=== PATIENT | female | born 1980 | race Caucasian/White ===

== ENCOUNTER 2016-03-30 22:43 | Inpatient (IN) | payer OTHER ==
[~2016-03-30] VITALS: Ht 177.8 cm; Wt 76.6 kg
[2016-03-30] MEDS: SENOKOT S TAB PO SCH (21:00)
[~2016-03-30 22:43] MED LIST: TYLE325T5 PO
[2016-03-30] MEDS ORDERED: MORPHINE 4 MG/ML 1ML SYRINGE As Ordered ONE (23:31)
[2016-03-30] MEDS ORDERED: ONDANSETRON 4MG/2ML VIAL (J2405) As Ordered ONE (23:31)
[2016-03-30 23:55] LABS: BASO # 0.1 K/mm3 (0.0-0.2); BASO % 1.9 % (0.0-1.0); EOS % 0.6 % (0.0-3.0); LARGE UNSTAINED CELL # 0.1 K/mm3 (0.0-0.4); LARGE UNSTAINED CELL % 1.2 % (0.0-4.0); LYMPH # 2.1 K/mm3 (1.5-4.5); LYMPH % 34.3 % (24.0-44.0); MEAN CORPUSCULAR HGB CONC 30.6 g/dl (32.0-36.5); MEAN CORPUSCULAR VOLUME 68.6 fl (80.0-96.0); MONO # 0.3 K/mm3 (0.0-0.8); MONO % 5.2 % (0.0-5.0); NEUTROPHILS # 3.3 K/mm3 (1.8-7.7); NEUTROPHILS % 56.7 % (36.0-66.0); PLATELET COUNT, AUTOMATED 254 k/mm3 (150-450); RED CELL DISTRIBUTION WIDTH 18.5 % (11.5-14.5); WHITE BLOOD COUNT 5.8 K/mm3 (4.0-10.0)
[2016-03-30 23:58] LABS: CALCIUM OXALATE CRYSTALS LARGE
[2016-03-31] LABS: ADD MORPHOLOGY? YES
[2016-03-31 00:18] LABS: ALBUMIN 4.1 GM/DL (3.2-5.2); ALBUMIN/GLOBULIN RATIO 1.03 (1.00-1.93); ALKALINE PHOSPHATASE 72 U/L (45-117); ALT/SGPT 15 U/L (12-78); AMYLASE 49 U/L (25-115); ANION GAP 7 MEQ/L (8-16); AST/SGOT 11 U/L (15-37); BILIRUBIN,DIRECT < 0.1 MG/DL (0.0-0.2); BILIRUBIN,TOTAL 0.3 MG/DL (0.2-1.0); BLOOD UREA NITROGEN 11 MG/DL (7-18); CALCIUM LEVEL 8.4 MG/DL (8.5-10.1); CARBON DIOXIDE LEVEL 28 MEQ/L (21-32); CHLORIDE LEVEL 106 MEQ/L (98-107); CREATININE FOR GFR 0.62 MG/DL (0.55-1.02); GLOMERULAR FILTRATION RATE > 60.0 (>60); GLUCOSE, FASTING 76 MG/DL (70-105); POTASSIUM SERUM 3.3 MEQ/L (3.5-5.1); SODIUM LEVEL 141 MEQ/L (136-145); TOTAL PROTEIN 8.1 GM/DL (6.4-8.2)
--- NOTE | 2016-03-31 00:40 | REPUSA ---
CLINICAL HISTORY: Abdominal pain. TECHNIQUE: Multiple axial, sagittal and coronal CT images were obtained through the abdomen and pelvi s without administration of oral or IV contrast material. COMMENTS: The liver is of uniform attenuation without mass or defect. There is no intra or extrahepatic biliary ductal dilatation. The spleen is normal. The gallbladder is surgically absent. The pancreas is of no rmal contour and attenuation characteristics. There is no evidence of adrenal mass. The kidneys are normal in size, shape and configuration. No renal or ureteral calculi are identified. There is no hydroureter or hydronephrosis. Gastric bypass surgery. There is no evidence for appendicitis. Fluid filled dilated proximal small bowels. Transition to norm al caliber small bowel in the right lower quadrant at the level of the surgical anastomosis. There is no evidence of abdominal ascites or lymphadenopathy. There is no evidence of intrinsic or extrinsic bladder mass. There is no pelvic ascites or lymphadeno noel. Images of the lung bases show no evidence of pleural or parenchymal mass. There are no pleural effusi ons. The bony structures are free of lytic or blastic lesions. IMPRESSION: Ileus versus developing/low grade partial bowel obstruction. Cholecystectomy. Gastric bypass surgery. Thank you for your kind referral of this patient.
[2016-03-31 00:57] LABS: ANISOCYTOSIS 2+; HYPOCHROMASIA 2+; MICROCYTOSIS 3+
[2016-03-31] MEDS ORDERED: FLUT1SPR2 (01:11)
[2016-03-31] MEDS ORDERED: NEXP68IM SC (01:11)
[2016-03-31] MEDS ORDERED: ZOLO100T PO (01:11)
[2016-03-31] MEDS ORDERED: ZOSYN 3.375 GM VIAL (J2543) As Ordered ONE (01:12)
[2016-03-31] MEDS ORDERED: ONDANSETRON 4MG/2ML VIAL (J2405) IV PRN (01:30)
[2016-03-31] MEDS ORDERED: NORCO, ANEXSIA 5/325MG TABLET (HYDROcodone/ACETAMINOPHEN) PO PRN ×2 (01:30)
[2016-03-31] MEDS ORDERED: ACETAMINOPHEN TAB 650MG DOSE (2X325MG) PO PRN (01:30)
[2016-03-31] MEDS ORDERED: MOM 30ML SUSPENSION UDC PO PRN (01:30)
[2016-03-31] MEDS ORDERED: MORPHINE 4 MG/ML 1ML SYRINGE As Ordered ONE (01:38)
--- NOTE | 2016-03-31 02:09 | EDDOCDS ---
Physician Documentation [facility] Name: Stacia Ponce Age: 35 yrs Sex: Female : 1980 Arrival Date: 03/30/2016 Time: 22:43 Bed I4 / M4 Private MD: Other - Complete Info On Cds Disposition: 03/31/16 01:00 Hospitalization ordered by King Agustin for Inpatient Admission. Preliminary diagnosis are Other intestinal obstruction - partial, Urinary tract infection, site not specified - Pyelonephritis. - Bed requested for 5 Aly. - Status is Inpatient Admission. nn1 - Condition is Stable. - Problem is new. - Symptoms have improved. Historical: - Allergies: Aspirin; - Home Meds: 1. Zoloft 100 mg Oral tab 1 tab once daily 2. bcp implant - PMHx: Anemia; Chronic Back pain; Gastric Ulcers; - PSHx: Gastric Bypass; Cholecystectomy; Appendectomy; ulcer repair; - Social history: Smoking status: Patient uses tobacco products, heavy tobacco smoker. No barriers to communication noted, The patient speaks fluent Japanese, Speaks appropriately for age. - Family history: No immediate family members are acutely ill. - : The pt / caregiver states he / she is not on anticoagulants. Home medication list is obtained from the patient. - Exposure Risk Screening:: None identified. DOCUMENTUM CONSULTANT: 03/30 22:48 LMP 03/17/2016 kaice Vital Signs: 22:45 BP 159 / 98; Pulse 82; Resp 18 S; Temp 98.7(O); Pulse Ox 100% on R/A; Weight 68.04 kg / gr2 150 lbs (R); Height 5 ft. 10 in. (177.80 cm) (R); Pain 10/; 03/31 01:59 BP 124 / 71 LA Supine (auto/reg); Pulse 60 MON; Resp 18 S; Temp 99.0(TE); Pulse Ox 97% cln on R/A; Pain 0/; 03/30 22:45 Body Mass Index 21.52 (68.04 kg, 177.80 cm) gr2 MDM: 03/30 23:20 NS 0.9% 1000 ml IV at bolus once ordered. ef1 23:20 Ondansetron 4 mg IVP once ordered. ef1 23:20 IV Saline Lock ordered. ef1 23:20 Undress patient appropriately for examination ordered. ef1 23:21 Amylase Ordered. EDMS 23:21 Basic Metabolic Profile Ordered. EDMS 23:21 CBC with Diff Ordered. EDMS 23:21 Lipase Ordered. EDMS 23:21 Liver Profile Ordered. EDMS 23:21 Urinalysis Ordered. EDMS 23:21 Urine Culture Ordered. EDMS 23:21 morphine 4 mg IVP once ordered. ef1 23:22 CT ABD & PELVIS: No Contrast Ordered. EDMS 23:22 NOTHING BY MOUTH+DIET ordered. EDMS 23:44 UCG by Nursing ordered. ef1 0106 00:01 RBC MORPH PROF NO CHARGE Ordered. EDMS 00:16 Financial registration complete. slh 00:36 Basic Metabolic Profile Reviewed. ef1 00:36 CBC with Diff Reviewed. ef1 00:36 Liver Profile Reviewed. ef1 00:36 Urinalysis Reviewed. ef1 00:36 Amylase Reviewed. ef1 00:36 Lipase Reviewed. ef1 00:39 [facility] [place] Payment Agreement was scanned into [employer] and attached to record. slh 00:50 BED REQUEST+ADM ordered. EDMS 00:58 Piperacillin-Tazobactam 3.375 grams IVPB once over 30 mins; dilute in 50mL of NS or D5W ef1 ordered. 00:58 CBC with Diff Reviewed. ef1 00:58 RBC MORPH PROF NO CHARGE Reviewed. ef1 01:27 Admission / Observation Status ordered. EDMS 01:28 NPO DIET ordered. EDMS 01:28 CBC WITH DIFFERENTIAL Ordered. EDMS 01:28 BASIC METABOLIC PROFILE Ordered. EDMS 01:29 Abdomen,Flat\E\Upright,PA CHEST Ordered. EDMS 01:37 morphine 4 mg IVP once ordered. nn1 Point of Care Testing: Urine : 03/30 23:47 hCG Reading: Negative; Control Reading: Positive; cln Ranges: Administered Medications: 23:51 Drug: NS 0.9% 1000 ml [sodium chloride 0.9 % intravenous solution] Route: IV; Rate: nn1 bolus; Site: right antecubital; 03/31 01:56 Follow up: IV Status: Completed infusion; IV Intake: 1000ml nn1 03/30 23:51 Drug: Ondansetron 4 mg [ondansetron HCl 2 mg/mL intravenous solution (2 mL)] Route: nn1 IVP; Site: right antecubital; 23:51 Drug: morphine 4 mg [morphine 4 mg/mL intravenous cartridge (1 mL)] Route: IVP; Site: nn1 right antecubital; 03/31 01:23 Drug: Piperacillin-Tazobactam 3.375 grams [piperacillin-tazobactam 3.375 gram nn1 intravenous solution] Route: IVPB; Infused Over: 30 mins; Site: right antecubital; 01:55 Follow up: IV Status: Completed infusion nn1 01:43 Drug: morphine 4 mg [morphine 4 mg/mL intravenous cartridge (1 mL)] Route: IVP; Site: nn1 right antecubital; Signatures: Dispatcher [employer] EDMS Anjali Sánchez PA-C PA-C ef1 Kady Casarez RN RN [facility] [place] CariasRN RN Nadja Thompson [facility] Gabriel ReaRN RN nn The chart was reviewed and I authenticate all verbal orders and agree with the evaluation and treatment provided.Corrections: (The following items were deleted from the chart) 01:33 00:59 NG Tube, 18Fr ordered. [place] [id number] Attachments: 00:39 [facility] [place] Payment Agreement [facility] MTDD
--- NOTE | 2016-03-31 02:09 | EDDOCDS ---
Nurse's Notes [facility] Name: Stacia Ponce Age: 35 yrs Sex: Female : 1980 Arrival Date: 03/30/2016 Time: 22:43 Bed I4 / M4 Private MD: Other - Complete Info On Cds Diagnosis: Other intestinal obstruction-partial;Urinary tract infection, site not specified-Pyelonephritis Presentation: 03/30 22:47 Presenting complaint: Patient states: Patient reports lower back and side pain. Patient jmb reports that symptoms present for a couple weeks. Patient reports here due to pain being "Unbearable". Acute neurological deficits are not present. Mechanism of Injury: No Mechanism of Injury. Adult Sepsis Screening: The patient does not have new or worsening altered mentation. Patient's respiratory rate is less than 22. Systolic blood pressure is greater than 100. Patient has a qSOFA score of 0- Negative Sepsis Screen. Suicide/Homicide risk assessment- the patient denies having any suicidal and/or homicidal ideations and does not present with any other emotional, behavioral or mental health complaints. Status: Patient is not a convention services director or dependent. Transition of care: patient was not received from another setting of care. 22:47 Acuity: ROSE Level 4 [facility] 22:47 Method Of Arrival: Walkin/Carried/[facility] 23:19 Acuity: ROSE Level 3 b Triage Assessment: 22:48 General: Appears uncomfortable, Behavior is appropriate for age. Pain: Location: back b Pain currently is 8 out of 10 on a pain scale. HIV screening NA for this visit Offered previously. Neurological: Level of Consciousness is awake, alert, obeys commands, Oriented to person, place, time, Speech is normal, Facial symmetry appears normal, Facial symmetry: tongue is midline. Respiratory: Airway is patent Respiratory effort is even, unlabored, Respiratory pattern is regular, symmetrical. Derm: Skin is pink, warm & dry. Musculoskeletal: Range of motion intact in all extremities. PRACTICE ADVISOR: 22:48 LMP 03/17/2016 [facility] Historical: - Allergies: Aspirin; - Home Meds: 1. Zoloft 100 mg Oral tab 1 tab once daily 2. bcp implant - PMHx: Anemia; Chronic Back pain; Gastric Ulcers; - PSHx: Gastric Bypass; Cholecystectomy; Appendectomy; ulcer repair; - Social history: Smoking status: Patient uses tobacco products, heavy tobacco smoker. No barriers to communication noted, The patient speaks fluent Bahamian, Speaks appropriately for age. - Family history: No immediate family members are acutely ill. - : The pt / caregiver states he / she is not on anticoagulants. Home medication list is obtained from the patient. - Exposure Risk Screening:: None identified. Screenin/06 01:45 Screening information is obtained from the patient. Fall risk: No risks identified. nn1 Assistance ADL's: requires no assistance with activities of daily living. Abuse/DV Screen: The patient / caregiver reports he/she is: not in a situation that causes fear, pain or injury. Nutritional screening: No deficits noted. Advance Directives: There is no active DNR order. home support is adequate. Assessment: 03/30 23:32 General: Appears in no apparent distress, uncomfortable, Behavior is appropriate for nn1 age, cooperative. General: Patient denies history of kidney stones, reports she has had pain for a couple of weeks. Discomfort with urination began this AM, became worse at 0. . Pain: Location: low back area Pain currently is 8 out of 10 on a pain scale. Quality of pain is described as sharp, Pain began couple of weeks ago. Neurological: Level of Consciousness is awake, alert, obeys commands. Respiratory: Airway is patent Respiratory effort is even, unlabored, Respiratory pattern is regular. GI: Abdomen is non- distended Bowel sounds present X 4 quads. Abd is soft X 4 quads. : Reports burning with urination since 2129 hematuria. Derm: Skin is pink, warm & dry. 03/31 00:30 General: Appears uncomfortable, Patient reports feeling better but pain is still strong nn1 in the left flank. Patient given warm blanket. . Respiratory: Airway is patent Respiratory effort is even, unlabored, Respiratory pattern is regular. Derm: Skin is pink, warm & dry. 01:23 General: Appears uncomfortable, Behavior is appropriate for age, cooperative, Patient nn1 aware of plan of care at this time.. 01:31 General: Patient has history of gastric bypass, NG tube contraindicated. Holding off on nn1 NG tube at this time. Patient appears uncomfortable, reports pain in left flank. Will consult admission orders. . Derm: Skin is pink, warm & dry. 01:46 General: Patient medicated per orders . nn1 Vital Signs: 03/30 22:45 BP 159 / 98; Pulse 82; Resp 18 S; Temp 98.7(O); Pulse Ox 100% on R/A; Weight 68.04 kg gr2 (R); Height 5 ft. 10 in. (177.80 cm) (R); Pain 10/10; 03/31 01:59 BP 124 / 71 LA Supine (auto/reg); Pulse 60 MON; Resp 18 S; Temp 99.0(TE); Pulse Ox 97% cln on R/A; Pain 0/10; 03/30 22:45 Body Mass Index 21.52 (68.04 kg, 177.80 cm) gr2 Vitals: 03/30 22:45 Log In Time: March 30, 2016 at 22:45. gr2 ED Course: 22:44 Patient visited by Clifford Sawant. gr2 22:44 Other - Complete Info On Cds is Private Physician. gr2 22:44 Patient moved to Waiting gr2 22:46 Patient visited by Clifford Sawant. gr2 22:46 Patient moved to Pre RCE gr2 22:48 Triage Initiated jmb 23:10 Patient moved to Triage 2 jmb 23:12 Anjali S[facility]chez [facility]-C [facility] ef1 23:12 Booker Bruno DO is Attending Physician. ef1 23:14 Patient visited by Anjali Sánchez PA-C. ef1 23:23 Patient moved to I4 / M4 jmb 23:46 Urine collected. Clean catch specimen. cln 23:47 Patient visited by Adelina Gage PCA. cln 23:51 Liver Profile Sent. nn1 23:51 Lipase Sent. nn1 23:51 CBC with Diff Sent. nn1 23:51 Basic Metabolic Profile Sent. nn1 23:51 Amylase Sent. nn1 23:51 Inserted saline lock: 20 gauge in right antecubital area and blood collected. The nn1 patient tolerated the procedure well. 03/31 00:30 Patient visited by Gabriel Rea RN. nn1 00:39 [facility] [place] Agreement was scanned into [employer] and attached to record. [facility] 00:48 Patient visited by Anjali Sánchez PA-C. ef1 01:00 King Agustin MD is Hospitalizing Provider. ef1 01:07 CT ABD & PELVIS: No Contrast Returned. EDMS 01:55 No procedures done that require assistance. nn1 01:56 The patient / caregiver is instructed regarding the plan of care and ED course. nn1 01:59 Patient visited by Adelina Gage PCA. cln Administered Medications: 03/30 23:51 Drug: NS 0.9% 1000 ml [sodium chloride 0.9 % intravenous solution] Route: IV; Rate: nn1 bolus; Site: right antecubital; 03/31 01:56 Follow up: IV Status: Completed infusion; IV Intake: 1000ml nn1 03/30 23:51 Drug: Ondansetron 4 mg [ondansetron HCl 2 mg/mL intravenous solution (2 mL)] Route: nn1 IVP; Site: right antecubital; 23:51 Drug: morphine 4 mg [morphine 4 mg/mL intravenous cartridge (1 mL)] Route: IVP; Site: [facility] right antecubital; 03/31 01:23 Drug: Piperacillin-Tazobactam 3.375 grams [piperacillin-tazobactam 3.375 gram nn1 intravenous solution] Route: IVPB; Infused Over: 30 mins; Site: right antecubital; 01:55 Follow up: IV Status: Completed infusion nn1 01:43 Drug: morphine 4 mg [morphine 4 mg/mL intravenous cartridge (1 mL)] Route: IVP; Site: [facility] right antecubital; Point of Care Testing: Urine : 03/30 23:47 hCG Reading: Negative; Control Reading: Positive; cln Ranges: Intake: 03/31 01:56 IV: 1000.00ml; Total: 1000.00ml. nn1 Order Results: Lab Order: Amylase; SPEC'M 03/30/16 23:35 Test: AMYLASE; Value: 49; Range: 25-115; Units: U/L; Status: F Lab Order: Basic Metabolic Profile; SPEC'M 03/30/16 23:35 Test: GLUCOSE, FASTING; Value: 76; Range: 70-105; Units: MG/DL; Status: F Test: BLOOD UREA NITROGEN; Value: 11; Range: 7-18; Units: MG/DL; Status: F Test: CREATININE FOR GFR; Value: 0.62; Range: 0.55-1.02; Units: MG/DL; Status: F Test: GLOMERULAR FILTRATION RATE; Value: > 60.0; Range: >60; Status: F Test: SODIUM LEVEL; Value: 141; Range: 136-145; Units: MEQ/L; Status: F Test: POTASSIUM SERUM; Value: 3.3; Range: 3.5-5.1; Abnormal: Below low normal; Units: MEQ/L; Status: F Test: CHLORIDE LEVEL; Value: 106; Range: 98-107; Units: MEQ/L; Status: F Test: CARBON DIOXIDE LEVEL; Value: 28; Range: 21-32; Units: MEQ/L; Status: F Test: ANION GAP; Value: 7; Range: 8-16; Abnormal: Below low normal; Units: MEQ/L; Status: F Test: CALCIUM LEVEL; Value: 8.4; Range: 8.5-10.1; Abnormal: Below low normal; Units: MG/DL; Status: F Test Note: ; Units are mL/min/1.73 m2 Chronic Kidney Disease Staging per NKF: Stage I & II GFR >=60 Normal to Mildly Decreased Stage III GFR 30-59 Moderately Decreased Stage IV GFR 15-29 Severely Decreased Stage V GFR <15 Very Little GFR Left ESRD GFR <15 on CARVER HAND Lab Order: CBC with Diff; SPEC'M 03/30/16 23:35 Test: WHITE BLOOD COUNT; Value: 5.8; Range: 4.0-10.0; Units: K/mm3; Status: F Test: RED BLOOD COUNT; Value: 4.10; Range: 4.00-5.40; Units: M/mm3; Status: F Test: HEMOGLOBIN; Value: 8.6; Range: 12.0-16.0; Abnormal: Below low normal; Units: g/dl; Status: F Test: HEMATOCRIT; Value: 28.1; Range: 36.0-47.0; Abnormal: Below low normal; Units: %; Status: F Test: MEAN CORPUSCULAR VOLUME; Value: 68.6; Range: 80.0-96.0; Abnormal: Below low normal; Units: fl; Status: F Test: MEAN CORPUSCULAR HEMOGLOBIN; Value: 21.0; Range: 27.0-33.0; Abnormal: Below low normal; Units: pg; Status: F Test: MEAN CORPUSCULAR HGB CONC; Value: 30.6; Range: 32.0-36.5; Abnormal: Below low normal; Units: g/dl; Status: F Test: RED CELL DISTRIBUTION WIDTH; Value: 18.5; Range: 11.5-14.5; Abnormal: Above high normal; Units: %; Status: F Test: PLATELET COUNT, AUTOMATED; Value: 254; Range: 150-450; Units: k/mm3; Status: F Test: NEUTROPHILS %; Value: 56.7; Range: 36.0-66.0; Units: %; Status: F Test: LYMPH %; Value: 34.3; Range: 24.0-44.0; Units: %; Status: F Test: MONO %; Value: 5.2; Range: 0.0-5.0; Abnormal: Above high normal; Units: %; Status: F Test: EOS %; Value: 0.6; Range: 0.0-3.0; Units: %; Status: F Test: BASO %; Value: 1.9; Range: 0.0-1.0; Abnormal: Above high normal; Units: %; Status: F Test: LARGE UNSTAINED CELL %; Value: 1.2; Range: 0.0-4.0; Units: %; Status: F Test: NEUTROPHILS #; Value: 3.3; Range: 1.8-7.7; Units: K/mm3; Status: F Test: LYMPH #; Value: 2.1; Range: 1.5-4.5; Units: K/mm3; Status: F Test: MONO #; Value: 0.3; Range: 0.0-0.8; Units: K/mm3; Status: F Test: EOS #; Value: 0.0; Range: 0.0-0.50; Units: K/mm3; Status: F Test: BASO #; Value: 0.1; Range: 0.0-0.2; Units: K/mm3; Status: F Test: LARGE UNSTAINED CELL #; Value: 0.1; Range: 0.0-0.4; Units: K/mm3; Status: F Lab Order: Lipase; SPEC'M 03/30/16 23:35 Test: LIPASE; Value: 158; Range: 73-393; Units: U/L; Status: F Lab Order: Liver Profile; SPEC'M 03/30/16 23:35 Test: AST/SGOT; Value: 11; Range: 15-37; Abnormal: Below low normal; Units: U/L; Status: F Test: ALT/SGPT; Value: 15; Range: 12-78; Units: U/L; Status: F Test: ALKALINE PHOSPHATASE; Value: 72; Range: 45-117; Units: U/L; Status: F Test: BILIRUBIN,TOTAL; Value: 0.3; Range: 0.2-1.0; Units: MG/DL; Status: F Test: BILIRUBIN,DIRECT; Value: < 0.1; Range: 0.0-0.2; Units: MG/DL; Status: F Test: TOTAL PROTEIN; Value: 8.1; Range: 6.4-8.2; Units: GM/DL; Status: F Test: ALBUMIN; Value: 4.1; Range: 3.2-5.2; Units: GM/DL; Status: F Test: ALBUMIN/GLOBULIN RATIO; Value: 1.03; Range: 1.00-1.93; Status: F Lab Order: Urinalysis; SPEC'M 03/30/16 23:33 Test: APPEARANCE, URINE; Value: HAZY; Range: CLEAR; Status: F Test: COLOR, URINE; Value: YELLOW; Range: YELLOW; Status: F Test: PH,URINE; Value: 5.0; Range: 5.0-9.0; Units: UNITS; Status: F Test: SPECIFIC GRAVITY URINE AUTO; Value: 1.030; Range: 1.002-1.035; Status: F Test: PROTEIN, URINE AUTO; Value: NEGATIVE; Range: NEGATIVE; Units: mg/dL; Status: F Test: GLUCOSE, URINE (UA) AUTO; Value: NEGATIVE; Range: NEGATIVE; Units: mg/dL; Status: F Test: KETONE, URINE AUTO; Value: TRACE; Range: NEGATIVE; Abnormal: Above high normal; Units: mg/dL; Status: F Test: UROBILINOGEN, URINE AUTO; Value: 4.0; Range: 0.0-2.0; Abnormal: Above high normal; Units: mg/dL; Status: F Test: BILIRUBIN, URINE AUTO; Value: NEGATIVE; Range: NEGATIVE; Status: F Test: NITRITE, URINE AUTO; Value: NEGATIVE; Range: NEGATIVE; Status: F Test: LEUKOCYTE ESTERASE, URINE AUTO; Value: TRACE; Range: NEGATIVE; Abnormal: Above high normal; Status: F Test: BLOOD, URINE BLOOD; Value: NEGATIVE; Range: NEGATIVE; Status: F Test: WBC, URINE AUTO; Value: 2; Range: 0-3; Units: /HPF; Status: F Test: RBC, URINE AUTO; Value: 2; Range: 0-3; Units: /HPF; Status: F Test: BACTERIA, URINE AUTO; Value: NEGATIVE; Range: NEGATIVE; Status: F Test: SQUAMOUS EPITHELIAL CELL UR AU; Value: 1; Range: 0-6; Units: /HPF; Status: F Test: MUCUS, URINE; Value: SMALL; Range: NEGATIVE; Status: F Test: HYALINE CAST, URINE AUTO; Value: 0; Range: 0-1; Units: /LPF; Status: F Test: CALCIUM OXALATE CRYSTALS; Value: LARGE; Range: NONE; Status: F Lab Order: RBC MORPH PROF NO CHARGE; SPEC'M 03/30/16 23:35 Test: PLATELET ESTIMATE; Range: NORMAL; Status: I Test: HYPOCHROMASIA; Value: 2+; Status: F Test: ANISOCYTOSIS; Value: 2+; Status: F Test: MICROCYTOSIS; Value: 3+; Status: F Test: PLATELET ESTIMATE; Value: NORMAL; Range: NORMAL; Status: F Radiology Order: CT ABD & PELVIS: No Contrast Test: CT ABD & PELVIS: No Contrast REASON FOR EXAMINATION: Renal colic; ; CLINICAL HISTORY: Abdominal pain.; TECHNIQUE: Multiple axial, sagittal and coronal CT images were obtained through the abdomen and pelvi; s without administration of oral or IV contrast material.; COMMENTS:; The liver is of uniform attenuation without mass or defect. There is no intra or extrahepatic biliary; ductal dilatation. The spleen is normal. The gallbladder is surgically absent. The pancreas is of no; rmal contour and attenuation characteristics. There is no evidence of adrenal mass.; The kidneys are normal in size, shape and configuration. No renal or ureteral calculi are identified.; There is no hydroureter or hydronephrosis. Gastric bypass surgery.; There is no evidence for appendicitis. Fluid filled dilated proximal small bowels. Transition to norm; al caliber small bowel in the right lower quadrant at the level of the surgical anastomosis. There is; no evidence of abdominal ascites or lymphadenopathy.; There is no evidence of intrinsic or extrinsic bladder mass. There is no pelvic ascites or lymphadeno; noel.; Images of the lung bases show no evidence of pleural or parenchymal mass. There are no pleural effusi; ons.; The bony structures are free of lytic or blastic lesions.; IMPRESSION:; Ileus versus developing/low grade partial bowel obstruction.; Cholecystectomy.; Gastric bypass surgery.; Thank you for your kind referral of this patient.; ; Outcome: 01:00 Decision to Hospitalize by Provider. ef1 01:55 Discharge Assessment: Patient awake, alert and oriented x 3. No cognitive and/or nn1 functional deficits noted. Patient verbalized understanding of disposition instructions. patient administered narcotics - yes. Patient was admitted to the hospital or transferred to another facility. The following High Risk Discharge criteria are identified: None. Admitted to Med/Surg accompanied by tech, via wheelchair, with chart. Condition: unchanged. Property :Personal belongings accompany Pt. 01:56 No special radiology studies were completed. nn1 02:09 Patient left the ED. nn1 Signatures: Dispatcher [employer] EDMS Anjali Sánchez PA-C PASamanthaC ef1 Clifofrd Sawant gr2 [place] Carias,RN RN Nadja Thompson Nikkole, RN RN nn1 Adelina Gage, KARINA MAJOR CASE DETECTIVE cln MTDD
[2016-03-31 02:35] VITALS: BP 134/80
[2016-03-31] MEDS: KCL 40MEQ IN D5/0.45NS 1000ML 1,000 ML IV SCH ×2 (03:19→14:05)
[2016-03-31] MEDS: MORPHINE 4 MG/ML 1ML SYRINGE IV PRN ×5 (04:13→20:04)
[2016-03-31 06:00] VITALS: BP 115/67
[2016-03-31 07:06] LABS: BASO % 0.4 % (0.0-1.0); EOS # 0.1 K/mm3 (0.0-0.50); EOS % 1.8 % (0.0-3.0); LARGE UNSTAINED CELL # 0.1 K/mm3 (0.0-0.4); LARGE UNSTAINED CELL % 2.7 % (0.0-4.0); LYMPH % 44.6 % (24.0-44.0); MEAN CORPUSCULAR HEMOGLOBIN 20.6 pg (27.0-33.0); MONO # 0.3 K/mm3 (0.0-0.8); MONO % 6.3 % (0.0-5.0); NEUTROPHILS % 44.1 % (36.0-66.0); PLATELET COUNT, AUTOMATED 196 k/mm3 (150-450); RED CELL DISTRIBUTION WIDTH 17.2 % (11.5-14.5); WHITE BLOOD COUNT 4.6 K/mm3 (4.0-10.0)
[2016-03-31 07:13] LABS: MEAN CORPUSCULAR VOLUME 73.6 fl (80.0-96.0)
[2016-03-31 07:34] LABS: ANION GAP 8 MEQ/L (8-16); BLOOD UREA NITROGEN 10 MG/DL (7-18); CALCIUM LEVEL 7.8 MG/DL (8.5-10.1); CARBON DIOXIDE LEVEL 24 MEQ/L (21-32); CHLORIDE LEVEL 113 MEQ/L (98-107); CREATININE FOR GFR 0.56 MG/DL (0.55-1.02); GLOMERULAR FILTRATION RATE > 60.0 (>60); GLUCOSE, FASTING 85 MG/DL (70-105); POTASSIUM SERUM 3.7 MEQ/L (3.5-5.1); SODIUM LEVEL 145 MEQ/L (136-145)
[2016-03-31] MEDS: ENOXAPARIN 40 MG/0.4 ML SYRINGE (J1650) SC SCH (08:29)
[2016-03-31] MEDS: SENOKOT S TAB PO SCH ×3 (08:29→20:04)
[2016-03-31] MEDS: PANTOPRAZOLE 40MG INJ (PROTONIX) (C9113) IV SCH (08:29)
[2016-03-31] MEDS ORDERED: E-Z-PAQUE 96% w/w SUSP 176GM BTL As Ordered ONE (10:28)
[2016-03-31 14:00] VITALS: BP 115/67
--- NOTE | 2016-03-31 15:08 | REP ---
UPPER GI, SINGLE CONTRAST AND SMALL BOWEL FOLLOW THROUGH: The procedure was performed under the direct supervision of Dr. Kahn. The images were reviewed with Dr. Kahn. Liquid barium was administered in the erect and prone oblique positions in order to perform a single contrast upper GI examination. Additionally, liquid barium was given at the end of the examination in order to perform a small bowel follow through. The oral and pharyngeal stages of deglutition are unremarkable. Esophageal transport is prompt and efficient and there is no esophagitis, stricture, mucosal ring or hiatal hernia. Gastroesophageal reflux is not demonstrated on this examination. The patient is status post gastric bypass. There is free flow of contrast through the stomach remnant and anastomosis without evidence of obstruction, stricture or ulcer. The visualized portion of the proximal small bowel appears normal in course and caliber. The barium column was followed through the small bowel to the level of the terminal ileum. Small bowel transit time was approximately 2 hours. During fluoroscopy, gentle palpation shows all loops are freely movable and pliable. There are no fixed or angulated loops. The small bowel mucosal pattern is normal in course and caliber. There is no transition to suggest a partial small bowel obstruction. Spot filming of the terminal ileum shows it to be unremarkable. IMPRESSION: There is free flow of contrast through the stomach anastomosis without evidence of obstruction, stricture or ulcer. 2 minutes and 15 seconds of fluoroscopy time was utilized for this procedure. Reviewed by VALENTE Dunbar 03/31/2016 04:18 PEdited and Signed by Chase Kahn MD 03/31/2016 05:23 P
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
[2016-03-31 22:00] VITALS: BP 118/71
[2016-04-01] MEDS: MORPHINE 4 MG/ML 1ML SYRINGE IV PRN ×2 (00:19→05:29)
[2016-04-01] MEDS: KCL 40MEQ IN D5/0.45NS 1000ML 1,000 ML IV SCH ×2 (01:16→08:09)
[2016-04-01 07:15] LABS: ANION GAP 8 MEQ/L (8-16); BASO % 0.5 % (0.0-1.0); BLOOD UREA NITROGEN 6 MG/DL (7-18); CALCIUM LEVEL 8.3 MG/DL (8.5-10.1); CARBON DIOXIDE LEVEL 26 MEQ/L (21-32); CHLORIDE LEVEL 112 MEQ/L (98-107); CREATININE FOR GFR 0.54 MG/DL (0.55-1.02); EOS # 0.1 K/mm3 (0.0-0.50); EOS % 1.5 % (0.0-3.0); GLOMERULAR FILTRATION RATE > 60.0 (>60); GLUCOSE, FASTING 82 MG/DL (70-105); LARGE UNSTAINED CELL # 0.1 K/mm3 (0.0-0.4); LARGE UNSTAINED CELL % 1.9 % (0.0-4.0); LYMPH # 1.7 K/mm3 (1.5-4.5); LYMPH % 39.2 % (24.0-44.0); MEAN CORPUSCULAR HEMOGLOBIN 21.2 pg (27.0-33.0); MEAN CORPUSCULAR HGB CONC 29.3 g/dl (32.0-36.5); MEAN CORPUSCULAR VOLUME 72.6 fl (80.0-96.0); MONO # 0.3 K/mm3 (0.0-0.8); NEUTROPHILS # 2.1 K/mm3 (1.8-7.7); NEUTROPHILS % 49.9 % (36.0-66.0); PLATELET COUNT, AUTOMATED 215 k/mm3 (150-450); POTASSIUM SERUM 3.9 MEQ/L (3.5-5.1); RED CELL DISTRIBUTION WIDTH 17.3 % (11.5-14.5); SODIUM LEVEL 146 MEQ/L (136-145); WHITE BLOOD COUNT 4.2 K/mm3 (4.0-10.0)
[2016-04-01] MEDS: ENOXAPARIN 40 MG/0.4 ML SYRINGE (J1650) SC SCH (08:09)
[2016-04-01] MEDS: PANTOPRAZOLE 40MG INJ (PROTONIX) (C9113) IV SCH (08:09)
[2016-04-01] MEDS: SENOKOT S TAB PO SCH (08:10)
[2016-04-01 12:00] VITALS: BP 122/60
[2016-04-01] MEDS ORDERED: OXYC1TAB23 PO (12:22)
[2016-04-01] MEDS ORDERED: COLA100C PO (12:22)
--- NOTE | 2016-04-01 14:28 | REP ---
Abdominal series 03/31/2016 Patient: Follow up ileus versus obstruction Chest: Comparison: None Findings: Real mediastinal silhouette is normal. Lungs are clear bilaterally. Bones and soft tissues are within normal limits Impression: no acute cardiopulmonary process Flat and upright KUB 03/31/2016 Comparison : CT abdomen pelvis 03/30/2016 Findings: There is some moderate residual gas within the redundant sigmoid colon. There are no dilated small bowel loops. Findings are most compatible with ileus confined to the redundant sigmoid , which measures up to 5.8 cm transverse dimension. There is no free intraperitoneal air. Surgical clips are seen within the left upper quadrant consistent with prior gastric bypass surgery. There has been a prior cholecystectomy. Aleksandra inferior vena cava filter is with tip at the inferior endplate of L 2. There are lower pelvic calculi bilaterally compatible with phleboliths. Impression: Mild ileus, confined to the redundant rectosigmoid colon. Bowel gas pattern is otherwise nonspecific, and there is no free intraperitoneal air. Signed by Palma Tavera MD 04/01/2016 02:19 P
[2016-04-01 22:00] VITALS: BP 129/61
--- NOTE | 2016-04-02 03:09 | EDDOCDS ---
Physician Documentation [facility] Name: Stacia Ponce Age: 35 yrs Sex: Female : 1980 Arrival Date: 03/30/2016 Time: 22:43 Bed I4 / M4 Private MD: Other - Complete Info On Cds Disposition: 03/31/16 01:00 Hospitalization ordered by King Agustin for Inpatient Admission. Preliminary diagnosis are Other intestinal obstruction - partial, Urinary tract infection, site not specified - Pyelonephritis. - Bed requested for 5 Aly. - Status is Inpatient Admission. nn1 - Condition is Stable. - Problem is new. - Symptoms have improved. Historical: - Allergies: Aspirin; - Home Meds: 1. Zoloft 100 mg Oral tab 1 tab once daily 2. bcp implant - PMHx: Anemia; Chronic Back pain; Gastric Ulcers; - PSHx: Gastric Bypass; Cholecystectomy; Appendectomy; ulcer repair; - Social history: Smoking status: Patient uses tobacco products, heavy tobacco smoker. No barriers to communication noted, The patient speaks fluent Serbian, Speaks appropriately for age. - Family history: No immediate family members are acutely ill. - : The pt / caregiver states he / she is not on anticoagulants. Home medication list is obtained from the patient. - Exposure Risk Screening:: None identified. 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 10 in. (177.80 cm) (R); Pain 10/; 03/31 01:59 BP 124 / 71 LA Supine (auto/reg); Pulse 60 MON; Resp 18 S; Temp 99.0(TE); Pulse Ox 97% cln on R/A; Pain 0/; 03/30 22:45 Body Mass Index 21.52 (68.04 kg, 177.80 cm) gr2 MDM: 03/30 23:20 NS 0.9% 1000 ml IV at bolus once ordered. ef1 23:20 Ondansetron 4 mg IVP once ordered. ef1 23:20 IV Saline Lock ordered. ef1 23:20 Undress patient appropriately for examination ordered. ef1 23:21 Amylase Ordered. EDMS 23:21 Basic Metabolic Profile Ordered. EDMS 23:21 CBC with Diff Ordered. EDMS 23:21 Lipase Ordered. EDMS 23:21 Liver Profile Ordered. EDMS 23:21 Urinalysis Ordered. EDMS 23:21 Urine Culture Ordered. EDMS 23:21 morphine 4 mg IVP once ordered. ef1 23:22 CT ABD & PELVIS: No Contrast Ordered. EDMS 23:22 NOTHING BY MOUTH+DIET ordered. EDMS 23:44 UCG by Nursing ordered. ef1 06 00:01 RBC MORPH PROF NO CHARGE Ordered. EDMS 00:16 Financial registration complete. slh 00:36 Basic Metabolic Profile Reviewed. ef1 00:36 CBC with Diff Reviewed. ef1 00:36 Liver Profile Reviewed. ef1 00:36 Urinalysis Reviewed. ef1 00:36 Amylase Reviewed. ef1 00:36 Lipase Reviewed. ef1 00:39 [facility] Agreement was scanned into [facility] and attached to record. slh 00:50 BED REQUEST+ADM ordered. EDMS 00:58 Piperacillin-Tazobactam 3.375 grams IVPB once over 30 mins; dilute in 50mL of NS or D5W ef1 ordered. 00:58 CBC with Diff Reviewed. ef1 00:58 RBC MORPH PROF NO CHARGE Reviewed. ef1 01:27 Admission / Observation Status ordered. EDMS 01:28 NPO DIET ordered. EDMS 01:28 CBC WITH DIFFERENTIAL Ordered. EDMS 01:28 BASIC METABOLIC PROFILE Ordered. EDMS 01:29 Abdomen,Flat\E\Upright,PA CHEST Ordered. EDMS 01:37 morphine 4 mg IVP once ordered. nn1 06:49 T-Sheet-- Draft Copy was scanned into [facility] and attached to record. gb 10:46 Radiology Report was scanned into [facility] and attached to record. gb 10:55 Radiology Report was scanned into [facility] and attached to record. gb Point of Care Testing: Urine : 03/30 23:47 hCG Reading: Negative; Control Reading: Positive; cln Ranges: Administered Medications: 23:51 Drug: NS 0.9% 1000 ml [sodium chloride 0.9 % intravenous solution] Route: IV; Rate: nn1 bolus; Site: right antecubital; 03/31 01:56 Follow up: IV Status: Completed infusion; IV Intake: 1000ml nn1 03/30 23:51 Drug: Ondansetron 4 mg [ondansetron HCl 2 mg/mL intravenous solution (2 mL)] Route: nn1 IVP; Site: right antecubital; 23:51 Drug: morphine 4 mg [morphine 4 mg/mL intravenous cartridge (1 mL)] Route: IVP; Site: nn right antecubital; 03/31 01:23 Drug: Piperacillin-Tazobactam 3.375 grams [piperacillin-tazobactam 3.375 gram nn1 intravenous solution] Route: IVPB; Infused Over: 30 mins; Site: right antecubital; 01:55 Follow up: IV Status: Completed infusion nn1 01:43 Drug: morphine 4 mg [morphine 4 mg/mL intravenous cartridge (1 mL)] Route: IVP; Site: [facility] right antecubital; Signatures: Dispatcher [employer] EDMS Khadra Lu, Otto Reg gb Anjali Sánchez, PA-C PA-C [facility] Kady Casarez RN RN [facility] [place] Carias,RN RN Nadja Thompson [facility] Gabriel Rea,RN RN nn1 The chart was reviewed and I authenticate all verbal orders and agree with the evaluation and treatment provided.Corrections: (The following items were deleted from the chart) 01:33 00:59 NG Tube, 18Fr ordered. [place] [id number] Attachments: 00:39 [facility] Payment Agreement [facility] 06:49 T-Sheet-- Draft Copy gb Chart Complete MTDD
--- NOTE | 2016-04-02 03:09 | EDDOCDS ---
Physician Documentation [facility] Name: Stacia Ponce Age: 35 yrs Sex: Female : 1980 Arrival Date: 03/30/2016 Time: 22:43 Bed I4 / M4 Private MD: Other - Complete Info On Cds Disposition: 03/31/16 01:00 Hospitalization ordered by King Agustin for Inpatient Admission. Preliminary diagnosis are Other intestinal obstruction - partial, Urinary tract infection, site not specified - Pyelonephritis. - Bed requested for 5 Aly. - Status is Inpatient Admission. nn1 - Condition is Stable. - Problem is new. - Symptoms have improved. Historical: - Allergies: Aspirin; - Home Meds: 1. Zoloft 100 mg Oral tab 1 tab once daily 2. bcp implant - PMHx: Anemia; Chronic Back pain; Gastric Ulcers; - PSHx: Gastric Bypass; Cholecystectomy; Appendectomy; ulcer repair; - Social history: Smoking status: Patient uses tobacco products, heavy tobacco smoker. No barriers to communication noted, The patient speaks fluent Belarusian, Speaks appropriately for age. - Family history: No immediate family members are acutely ill. - : The pt / caregiver states he / she is not on anticoagulants. Home medication list is obtained from the patient. - Exposure Risk Screening:: None identified. 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 10 in. (177.80 cm) (R); Pain 10/; 03/31 01:59 BP 124 / 71 LA Supine (auto/reg); Pulse 60 MON; Resp 18 S; Temp 99.0(TE); Pulse Ox 97% cln on R/A; Pain 0/; 03/30 22:45 Body Mass Index 21.52 (68.04 kg, 177.80 cm) gr2 MDM: 03/30 23:20 NS 0.9% 1000 ml IV at bolus once ordered. ef1 23:20 Ondansetron 4 mg IVP once ordered. ef1 23:20 IV Saline Lock ordered. ef1 23:20 Undress patient appropriately for examination ordered. ef1 23:21 Amylase Ordered. EDMS 23:21 Basic Metabolic Profile Ordered. EDMS 23:21 CBC with Diff Ordered. EDMS 23:21 Lipase Ordered. EDMS 23:21 Liver Profile Ordered. EDMS 23:21 Urinalysis Ordered. EDMS 23:21 Urine Culture Ordered. EDMS 23:21 morphine 4 mg IVP once ordered. ef1 23:22 CT ABD & PELVIS: No Contrast Ordered. EDMS 23:22 NOTHING BY MOUTH+DIET ordered. EDMS 23:44 UCG by Nursing ordered. ef1 06 00:01 RBC MORPH PROF NO CHARGE Ordered. EDMS 00:16 Financial registration complete. slh 00:36 Basic Metabolic Profile Reviewed. ef1 00:36 CBC with Diff Reviewed. ef1 00:36 Liver Profile Reviewed. ef1 00:36 Urinalysis Reviewed. ef1 00:36 Amylase Reviewed. ef1 00:36 Lipase Reviewed. ef1 00:39 [facility] [place] Agreement was scanned into [employer] and attached to record. slh 00:50 BED REQUEST+ADM ordered. EDMS 00:58 Piperacillin-Tazobactam 3.375 grams IVPB once over 30 mins; dilute in 50mL of NS or D5W ef1 ordered. 00:58 CBC with Diff Reviewed. ef1 00:58 RBC MORPH PROF NO CHARGE Reviewed. ef1 01:27 Admission / Observation Status ordered. EDMS 01:28 NPO DIET ordered. EDMS 01:28 CBC WITH DIFFERENTIAL Ordered. EDMS 01:28 BASIC METABOLIC PROFILE Ordered. EDMS 01:29 Abdomen,Flat\E\Upright,PA CHEST Ordered. EDMS 01:37 morphine 4 mg IVP once ordered. nn1 06:49 T-Sheet-- Draft Copy was scanned into [employer] and attached to record. gb 10:46 Radiology Report was scanned into [employer] and attached to record. gb 10:55 Radiology Report was scanned into [employer] and attached to record. gb Point of Care Testing: Urine : 03/30 23:47 hCG Reading: Negative; Control Reading: Positive; cln Ranges: Administered Medications: 23:51 Drug: NS 0.9% 1000 ml [sodium chloride 0.9 % intravenous solution] Route: IV; Rate: nn1 bolus; Site: right antecubital; 03/31 01:56 Follow up: IV Status: Completed infusion; IV Intake: 1000ml nn1 03/30 23:51 Drug: Ondansetron 4 mg [ondansetron HCl 2 mg/mL intravenous solution (2 mL)] Route: nn1 IVP; Site: right antecubital; 23:51 Drug: morphine 4 mg [morphine 4 mg/mL intravenous cartridge (1 mL)] Route: IVP; Site: nn right antecubital; 03/31 01:23 Drug: Piperacillin-Tazobactam 3.375 grams [piperacillin-tazobactam 3.375 gram nn1 intravenous solution] Route: IVPB; Infused Over: 30 mins; Site: right antecubital; 01:55 Follow up: IV Status: Completed infusion nn1 01:43 Drug: morphine 4 mg [morphine 4 mg/mL intravenous cartridge (1 mL)] Route: IVP; Site: [facility] right antecubital; Signatures: Dispatcher [employer] EDMS Khadra Lu, Otto Reg gb Anjali Sánchez, PA-C PA-C [facility] Kady Casarez RN RN [facility] [place] Carias,RN RN Nadja Thompson [facility] Gabriel Rea,RN RN nn1 The chart was reviewed and I authenticate all verbal orders and agree with the evaluation and treatment provided.Corrections: (The following items were deleted from the chart) 01:33 00:59 NG Tube, 18Fr ordered. [place] [id number] Attachments: 00:39 [facility] [place] Agreement [facility] 06:49 T-Sheet-- Draft Copy gb Chart Complete MTDD
--- NOTE | 2016-04-02 03:10 | EDDOCDS ---
Nurse's Notes [facility] Name: Stacia Ponce Age: 35 yrs Sex: Female : 1980 Arrival Date: 03/30/2016 Time: 22:43 Bed I4 / M4 Private MD: Other - Complete Info On Cds Diagnosis: Other intestinal obstruction-partial;Urinary tract infection, site not specified-Pyelonephritis Presentation: 03/30 22:47 Presenting complaint: Patient states: Patient reports lower back and side pain. Patient jmb reports that symptoms present for a couple weeks. Patient reports here due to pain being "Unbearable". Acute neurological deficits are not present. Mechanism of Injury: No Mechanism of Injury. Adult Sepsis Screening: The patient does not have new or worsening altered mentation. Patient's respiratory rate is less than 22. Systolic blood pressure is greater than 100. Patient has a qSOFA score of 0- Negative Sepsis Screen. Suicide/Homicide risk assessment- the patient denies having any suicidal and/or homicidal ideations and does not present with any other emotional, behavioral or mental health complaints. Status: Patient is not a food service associate or dependent. Transition of care: patient was not received from another setting of care. 22:47 Acuity: ROSE Level 4 [facility] 22:47 Method Of Arrival: Walkin/Carried/Asstd [facility] 23:19 Acuity: ROSE Level 3 b Triage Assessment: 22:48 General: Appears uncomfortable, Behavior is appropriate for age. Pain: Location: back b Pain currently is 8 out of 10 on a pain scale. HIV screening NA for this visit Offered previously. Neurological: Level of Consciousness is awake, alert, obeys commands, Oriented to person, place, time, Speech is normal, Facial symmetry appears normal, Facial symmetry: tongue is midline. Respiratory: Airway is patent Respiratory effort is even, unlabored, Respiratory pattern is regular, symmetrical. Derm: Skin is pink, warm & dry. Musculoskeletal: Range of motion intact in all extremities. 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 Zoloft 100 mg Oral tab 1 tab once daily 2. bcp implant - PMHx: Anemia; Chronic Back pain; Gastric Ulcers; - PSHx: Gastric Bypass; Cholecystectomy; Appendectomy; ulcer repair; - Social history: Smoking status: Patient uses tobacco products, heavy tobacco smoker. No barriers to communication noted, The patient speaks fluent Nauruan, Speaks appropriately for age. - Family history: No immediate family members are acutely ill. - : The pt / caregiver states he / she is not on anticoagulants. Home medication list is obtained from the patient. - Exposure Risk Screening:: None identified. Screenin/06 01:45 Screening information is obtained from the patient. Fall risk: No risks identified. nn1 Assistance ADL's: requires no assistance with activities of daily living. Abuse/DV Screen: The patient / caregiver reports he/she is: not in a situation that causes fear, pain or injury. Nutritional screening: No deficits noted. Advance Directives: There is no active DNR order. home support is adequate. Assessment: 03/30 23:32 General: Appears in no apparent distress, uncomfortable, Behavior is appropriate for nn1 age, cooperative. General: Patient denies history of kidney stones, reports she has had pain for a couple of weeks. Discomfort with urination began this AM, became worse at 0. . Pain: Location: low back area Pain currently is 8 out of 10 on a pain scale. Quality of pain is described as sharp, Pain began couple of weeks ago. Neurological: Level of Consciousness is awake, alert, obeys commands. Respiratory: Airway is patent Respiratory effort is even, unlabored, Respiratory pattern is regular. GI: Abdomen is non- distended Bowel sounds present X 4 quads. Abd is soft X 4 quads. : Reports burning with urination since 2129 hematuria. Derm: Skin is pink, warm & dry. 03/31 00:30 General: Appears uncomfortable, Patient reports feeling better but pain is still strong nn1 in the left flank. Patient given warm blanket. . Respiratory: Airway is patent Respiratory effort is even, unlabored, Respiratory pattern is regular. Derm: Skin is pink, warm & dry. 01:23 General: Appears uncomfortable, Behavior is appropriate for age, cooperative, Patient nn1 aware of plan of care at this time.. 01:31 General: Patient has history of gastric bypass, NG tube contraindicated. Holding off on nn1 NG tube at this time. Patient appears uncomfortable, reports pain in left flank. Will consult admission orders. . Derm: Skin is pink, warm & dry. 01:46 General: Patient medicated per orders . nn1 Vital Signs: 03/30 22:45 BP 159 / 98; Pulse 82; Resp 18 S; Temp 98.7(O); Pulse Ox 100% on R/A; Weight 68.04 kg gr2 (R); Height 5 ft. 10 in. (177.80 cm) (R); Pain 10/10; 03/31 01:59 BP 124 / 71 LA Supine (auto/reg); Pulse 60 MON; Resp 18 S; Temp 99.0(TE); Pulse Ox 97% cln on R/A; Pain 0/10; 03/30 22:45 Body Mass Index 21.52 (68.04 kg, 177.80 cm) gr2 Vitals: 03/30 22:45 Log In Time: March 30, 2016 at 22:45. gr2 ED Course: 22:44 Patient visited by Clifford Sawant. gr2 22:44 Other - Complete Info On Cds is Private Physician. gr2 22:44 Patient moved to Waiting gr2 22:46 Patient visited by Clifford Sawant. gr2 22:46 Patient moved to Pre RCE gr2 22:48 Triage Initiated jmb 23:10 Patient moved to Triage 2 jmb 23:12 [facility] ef1 23:12 Booker Bruno DO is Attending Physician. ef1 23:14 Patient visited by Anjali Sánchez PA-C. ef1 23:23 Patient moved to I4 / M4 jmb 23:46 Urine collected. Clean catch specimen. cln 23:47 Patient visited by Adelina Gage PCA. cln 23:51 Liver Profile Sent. nn1 23:51 Lipase Sent. nn1 23:51 CBC with Diff Sent. nn1 23:51 Basic Metabolic Profile Sent. nn1 23:51 Amylase Sent. nn1 23:51 Inserted saline lock: 20 gauge in right antecubital area and blood collected. The nn1 patient tolerated the procedure well. 03/31 00:30 Patient visited by Gabriel Rea RN. nn1 00:39 [facility] [place] [facility] [place] Agreement was scanned into [employer] and attached to record. [facility] 00:48 Patient visited by Anjali Sánchez PA-C. ef1 01:00 King Agustin MD is Hospitalizing Provider. ef1 01:07 CT ABD & PELVIS: No Contrast Returned. EDMS 01:55 No procedures done that require assistance. nn1 01:56 The patient / caregiver is instructed regarding the plan of care and ED course. nn1 01:59 Patient visited by Adelina Gage PCA. cln 06:49 T-Sheet-- Draft Copy was scanned into [employer] and attached to record. gb 10:46 Radiology Report was scanned into [employer] and attached to record. gb 10:55 Radiology Report was scanned into [employer] and attached to record. gb Administered Medications: 03/30 23:51 Drug: NS 0.9% 1000 ml [sodium chloride 0.9 % intravenous solution] Route: IV; Rate: nn1 bolus; Site: right antecubital; 03/31 01:56 Follow up: IV Status: Completed infusion; IV Intake: 1000ml nn1 03/30 23:51 Drug: Ondansetron 4 mg [ondansetron HCl 2 mg/mL intravenous solution (2 mL)] Route: nn1 IVP; Site: right antecubital; 23:51 Drug: morphine 4 mg [morphine 4 mg/mL intravenous cartridge (1 mL)] Route: IVP; Site: [facility] right antecubital; 03/31 01:23 Drug: Piperacillin-Tazobactam 3.375 grams [piperacillin-tazobactam 3.375 gram nn1 intravenous solution] Route: IVPB; Infused Over: 30 mins; Site: right antecubital; 01:55 Follow up: IV Status: Completed infusion nn1 01:43 Drug: morphine 4 mg [morphine 4 mg/mL intravenous cartridge (1 mL)] Route: IVP; Site: [facility] right antecubital; Point of Care Testing: Urine : 03/30 23:47 hCG Reading: Negative; Control Reading: Positive; cln Ranges: Intake: 03/31 01:56 IV: 1000.00ml; Total: 1000.00ml. nn1 Order Results: Lab Order: Amylase; SPEC'M 03/30/16 23:35 Test: AMYLASE; Value: 49; Range: 25-115; Units: U/L; Status: F Lab Order: Basic Metabolic Profile; SPEC'M 03/30/16 23:35 Test: GLUCOSE, FASTING; Value: 76; Range: 70-105; Units: MG/DL; Status: F Test: BLOOD UREA NITROGEN; Value: 11; Range: 7-18; Units: MG/DL; Status: F Test: CREATININE FOR GFR; Value: 0.62; Range: 0.55-1.02; Units: MG/DL; Status: F Test: GLOMERULAR FILTRATION RATE; Value: > 60.0; Range: >60; Status: F Test: SODIUM LEVEL; Value: 141; Range: 136-145; Units: MEQ/L; Status: F Test: POTASSIUM SERUM; Value: 3.3; Range: 3.5-5.1; Abnormal: Below low normal; Units: MEQ/L; Status: F Test: CHLORIDE LEVEL; Value: 106; Range: 98-107; Units: MEQ/L; Status: F Test: CARBON DIOXIDE LEVEL; Value: 28; Range: 21-32; Units: MEQ/L; Status: F Test: ANION GAP; Value: 7; Range: 8-16; Abnormal: Below low normal; Units: MEQ/L; Status: F Test: CALCIUM LEVEL; Value: 8.4; Range: 8.5-10.1; Abnormal: Below low normal; Units: MG/DL; Status: F Test Note: ; Units are mL/min/1.73 m2 Chronic Kidney Disease Staging per NKF: Stage I & II GFR >=60 Normal to Mildly Decreased Stage III GFR 30-59 Moderately Decreased Stage IV GFR 15-29 Severely Decreased Stage V GFR <15 Very Little GFR Left ESRD GFR <15 on SWITCH CLEANER Lab Order: CBC with Diff; SPEC'M 03/30/16 23:35 Test: WHITE BLOOD COUNT; Value: 5.8; Range: 4.0-10.0; Units: K/mm3; Status: F Test: RED BLOOD COUNT; Value: 4.10; Range: 4.00-5.40; Units: M/mm3; Status: F Test: HEMOGLOBIN; Value: 8.6; Range: 12.0-16.0; Abnormal: Below low normal; Units: g/dl; Status: F Test: HEMATOCRIT; Value: 28.1; Range: 36.0-47.0; Abnormal: Below low normal; Units: %; Status: F Test: MEAN CORPUSCULAR VOLUME; Value: 68.6; Range: 80.0-96.0; Abnormal: Below low normal; Units: fl; Status: F Test: MEAN CORPUSCULAR HEMOGLOBIN; Value: 21.0; Range: 27.0-33.0; Abnormal: Below low normal; Units: pg; Status: F Test: MEAN CORPUSCULAR HGB CONC; Value: 30.6; Range: 32.0-36.5; Abnormal: Below low normal; Units: g/dl; Status: F Test: RED CELL DISTRIBUTION WIDTH; Value: 18.5; Range: 11.5-14.5; Abnormal: Above high normal; Units: %; Status: F Test: PLATELET COUNT, AUTOMATED; Value: 254; Range: 150-450; Units: k/mm3; Status: F Test: NEUTROPHILS %; Value: 56.7; Range: 36.0-66.0; Units: %; Status: F Test: LYMPH %; Value: 34.3; Range: 24.0-44.0; Units: %; Status: F Test: MONO %; Value: 5.2; Range: 0.0-5.0; Abnormal: Above high normal; Units: %; Status: F Test: EOS %; Value: 0.6; Range: 0.0-3.0; Units: %; Status: F Test: BASO %; Value: 1.9; Range: 0.0-1.0; Abnormal: Above high normal; Units: %; Status: F Test: LARGE UNSTAINED CELL %; Value: 1.2; Range: 0.0-4.0; Units: %; Status: F Test: NEUTROPHILS #; Value: 3.3; Range: 1.8-7.7; Units: K/mm3; Status: F Test: LYMPH #; Value: 2.1; Range: 1.5-4.5; Units: K/mm3; Status: F Test: MONO #; Value: 0.3; Range: 0.0-0.8; Units: K/mm3; Status: F Test: EOS #; Value: 0.0; Range: 0.0-0.50; Units: K/mm3; Status: F Test: BASO #; Value: 0.1; Range: 0.0-0.2; Units: K/mm3; Status: F Test: LARGE UNSTAINED CELL #; Value: 0.1; Range: 0.0-0.4; Units: K/mm3; Status: F Lab Order: Lipase; SPEC'M 03/30/16 23:35 Test: LIPASE; Value: 158; Range: 73-393; Units: U/L; Status: F Lab Order: Liver Profile; SPEC'M 03/30/16 23:35 Test: AST/SGOT; Value: 11; Range: 15-37; Abnormal: Below low normal; Units: U/L; Status: F Test: ALT/SGPT; Value: 15; Range: 12-78; Units: U/L; Status: F Test: ALKALINE PHOSPHATASE; Value: 72; Range: 45-117; Units: U/L; Status: F Test: BILIRUBIN,TOTAL; Value: 0.3; Range: 0.2-1.0; Units: MG/DL; Status: F Test: BILIRUBIN,DIRECT; Value: < 0.1; Range: 0.0-0.2; Units: MG/DL; Status: F Test: TOTAL PROTEIN; Value: 8.1; Range: 6.4-8.2; Units: GM/DL; Status: F Test: ALBUMIN; Value: 4.1; Range: 3.2-5.2; Units: GM/DL; Status: F Test: ALBUMIN/GLOBULIN RATIO; Value: 1.03; Range: 1.00-1.93; Status: F Lab Order: Urinalysis; SPEC'M 03/30/16 23:33 Test: APPEARANCE, URINE; Value: HAZY; Range: CLEAR; Status: F Test: COLOR, URINE; Value: YELLOW; Range: YELLOW; Status: F Test: PH,URINE; Value: 5.0; Range: 5.0-9.0; Units: UNITS; Status: F Test: SPECIFIC GRAVITY URINE AUTO; Value: 1.030; Range: 1.002-1.035; Status: F Test: PROTEIN, URINE AUTO; Value: NEGATIVE; Range: NEGATIVE; Units: mg/dL; Status: F Test: GLUCOSE, URINE (UA) AUTO; Value: NEGATIVE; Range: NEGATIVE; Units: mg/dL; Status: F Test: KETONE, URINE AUTO; Value: TRACE; Range: NEGATIVE; Abnormal: Above high normal; Units: mg/dL; Status: F Test: UROBILINOGEN, URINE AUTO; Value: 4.0; Range: 0.0-2.0; Abnormal: Above high normal; Units: mg/dL; Status: F Test: BILIRUBIN, URINE AUTO; Value: NEGATIVE; Range: NEGATIVE; Status: F Test: NITRITE, URINE AUTO; Value: NEGATIVE; Range: NEGATIVE; Status: F Test: LEUKOCYTE ESTERASE, URINE AUTO; Value: TRACE; Range: NEGATIVE; Abnormal: Above high normal; Status: F Test: BLOOD, URINE BLOOD; Value: NEGATIVE; Range: NEGATIVE; Status: F Test: WBC, URINE AUTO; Value: 2; Range: 0-3; Units: /HPF; Status: F Test: RBC, URINE AUTO; Value: 2; Range: 0-3; Units: /HPF; Status: F Test: BACTERIA, URINE AUTO; Value: NEGATIVE; Range: NEGATIVE; Status: F Test: SQUAMOUS EPITHELIAL CELL UR AU; Value: 1; Range: 0-6; Units: /HPF; Status: F Test: MUCUS, URINE; Value: SMALL; Range: NEGATIVE; Status: F Test: HYALINE CAST, URINE AUTO; Value: 0; Range: 0-1; Units: /LPF; Status: F Test: CALCIUM OXALATE CRYSTALS; Value: LARGE; Range: NONE; Status: F Lab Order: RBC MORPH PROF NO CHARGE; SPEC'M 03/30/16 23:35 Test: PLATELET ESTIMATE; Range: NORMAL; Status: I Test: HYPOCHROMASIA; Value: 2+; Status: F Test: ANISOCYTOSIS; Value: 2+; Status: F Test: MICROCYTOSIS; Value: 3+; Status: F Test: PLATELET ESTIMATE; Value: NORMAL; Range: NORMAL; Status: F Radiology Order: CT ABD & PELVIS: No Contrast Test: CT ABD & PELVIS: No Contrast REASON FOR EXAMINATION: Renal colic; ; CLINICAL HISTORY: Abdominal pain.; TECHNIQUE: Multiple axial, sagittal and coronal CT images were obtained through the abdomen and pelvi; s without administration of oral or IV contrast material.; COMMENTS:; The liver is of uniform attenuation without mass or defect. There is no intra or extrahepatic biliary; ductal dilatation. The spleen is normal. The gallbladder is surgically absent. The pancreas is of no; rmal contour and attenuation characteristics. There is no evidence of adrenal mass.; The kidneys are normal in size, shape and configuration. No renal or ureteral calculi are identified.; There is no hydroureter or hydronephrosis. Gastric bypass surgery.; There is no evidence for appendicitis. Fluid filled dilated proximal small bowels. Transition to norm; al caliber small bowel in the right lower quadrant at the level of the surgical anastomosis. There is; no evidence of abdominal ascites or lymphadenopathy.; There is no evidence of intrinsic or extrinsic bladder mass. There is no pelvic ascites or lymphadeno; noel.; Images of the lung bases show no evidence of pleural or parenchymal mass. There are no pleural effusi; ons.; The bony structures are free of lytic or blastic lesions.; IMPRESSION:; Ileus versus developing/low grade partial bowel obstruction.; Cholecystectomy.; Gastric bypass surgery.; Thank you for your kind referral of this patient.; ; Outcome: 01:00 Decision to Hospitalize by Provider. ef1 01:55 Discharge Assessment: Patient awake, alert and oriented x 3. No cognitive and/or nn1 functional deficits noted. Patient verbalized understanding of disposition instructions. patient administered narcotics - yes. Patient was admitted to the hospital or transferred to another facility. The following High Risk Discharge criteria are identified: None. Admitted to Med/Surg accompanied by tech, via wheelchair, with chart. Condition: unchanged. Property :Personal belongings accompany Pt. 01:56 No special radiology studies were completed. nn1 02:09 Patient left the ED. nn1 Signatures: Dispatcher [employer] EDMS Khadra Lu, Anjali De La Torre, PASamanthaC PASamanthaC ef1 Clifford Sawant gr2 Berlin Carias,RN RN Nadja Thompson Nikkole, RN RN nn1 Adelina Gage, KARINA BOAT HOIST OPERATOR cln Chart Complete MTDD
--- NOTE | 2016-04-07 15:57 | DSES ---
DATE OF ADMISSION: 03/31/2016 DATE OF DISCHARGE: 04/01/2016 DISCHARGE DIAGNOSES: 1. Gastric bypass status with epigastric pain suspicious for probable anastomotic ulcer. 2. Ileus versus early partial small bowel obstruction resolved. 3. Chronic back pain. DISCHARGE MEDICATIONS: - acetaminophen 650 mg by mouth every 4 hours as needed for pain - Colace 100 mg by mouth twice a day as needed - Nexplanon 68 mg subcutaneously as directed - fluticasone propionate two sprays to nostrils daily - oxycodone/acetaminophen 5/325 mg per tablet one tablet by mouth every 4 hours as needed for pain - sertraline 100 mg by mouth daily DISCHARGE INSTRUCTIONS: 1. Diet regular as tolerated. 2. Activity as tolerated. 3. Followup with me in 2 weeks. HOSPITAL COURSE: Ms. Ponce is a 35-year-old female with history of gastric bypass who came into the emergency department actually with back pain, at the same time she was complaining of some mild epigastric discomfort. She was worked up in the emergency room. This included CT of the abdomen and pelvis. This was read by the overnight radiologist, possibility of partial small-bowel obstruction at the site of her distal jejunojejunal anastomosis from her gastric bypass. Thus I was called in to admit the patient. She was admitted overnight. A nasogastric tube was not placed as she was not throwing up. I repeated an x-ray that did not show any evidence for obstruction and this was followed by an upper gastrointestinal (GI) series as well as a small bowel followthrough to rule out possible gastrojejunal ulcer. This was not found. The small bowel followthrough also did not show any evidence for obstruction though passage was slow consistent probably with a mild ileus. There was no obstruction at the jejunojejunal anastomosis. She was then subsequently started on regular diet which she tolerated. She was complaining still of some back pain, probably more from her lower back, probably degenerative disc disease. She has had chronic back pain for a while. She was instructed to call her primary doctor to talk about possible referral to an orthopedic surgeon regarding her back pain. In summary, on discharge she was tolerating regular food. She is having normal bowel function. She continues to have some chronic back pain.
== END 2016-04-01 13:20 | disposition home or self-care (01) | DRG 347 ==
LOC: M ED 22:43 → M ED INP 03-31 01:19 → M MS5PR 03-31 02:16
PROVIDERS: ADMIT Surgery; ATTEND Surgery
DX: M51.36 Other intervertebral disc degeneration, lumbar region (principal); K56.7 Ileus, unspecified; K28.9 Gastrojejunal ulcer, unspecified as acute or chronic, without hemorrhage or perforation; F32.9 Major depressive disorder, single episode, unspecified; Z98.84 Bariatric surgery status; F17.210 Nicotine dependence, cigarettes, uncomplicated; D64.9 Anemia, unspecified; Z91.14 Patient's other noncompliance with medication regimen; K59.00 Constipation, unspecified; K91.89 Other postprocedural complications and disorders of digestive system; Z79.899 Other long term (current) drug therapy

== ENCOUNTER 2016-06-06 11:56 | Emergency (ER) | payer OTHER ==
[~2016-06-06] VITALS: Ht 175.3 cm; Wt 68.0 kg
[~2016-06-06 11:56] MED LIST changes: +COLA100C PO; +FLUT1SPR2; +NEXP68IM SC; +OXYC1TAB23 PO; +ZOLO100T PO
[2016-06-06] MEDS ORDERED: METH-107 PO (12:08)
[2016-06-06] MEDS ORDERED: KETOROLAC 30 MG/ML VIAL (J1885) IM ONE (13:00)
[2016-06-06] MEDS ORDERED: NORCOTAB PO (14:00)
[2016-06-06] MEDS ORDERED: ZOFR4TAB3 PO (14:01)
[2016-06-06 14:02] VITALS: BP 129/80
== END 2016-06-06 14:15 | disposition home or self-care (01) ==
LOC: M ED 12:34
DX: M54.42 Lumbago with sciatica, left side (principal); M51.36 Other intervertebral disc degeneration, lumbar region; F41.9 Anxiety disorder, unspecified; F33.9 Major depressive disorder, recurrent, unspecified; Z98.84 Bariatric surgery status; Z79.899 Other long term (current) drug therapy; Z79.3 Long term (current) use of hormonal contraceptives; Z88.6 Allergy status to analgesic agent; F17.210 Nicotine dependence, cigarettes, uncomplicated
CPT/HCPCS: 96372; 99282; J1885; J3360

== ENCOUNTER → 2016-08-30 | Outpatient (CLI) | payer OTHER ==
[~2016-08-30] MED LIST changes: -COLA100C PO; +COLA100C3 PO; +METH-107 PO; +NEXP1IMP SC; -NEXP68IM SC; +NORCOTAB PO; +ZOFR4TAB3 PO
[2016-08-30 18:18] LABS: BASO % 0.8 % (0.0-1.0); EOS # 0.1 K/mm3 (0.0-0.50); EOS % 1.6 % (0.0-3.0); LARGE UNSTAINED CELL # 0.1 K/mm3 (0.0-0.4); LARGE UNSTAINED CELL % 1.4 % (0.0-4.0); LYMPH # 1.9 K/mm3 (1.5-4.5); LYMPH % 36.8 % (24.0-44.0); MEAN CORPUSCULAR HEMOGLOBIN 21.4 pg (27.0-33.0); MEAN CORPUSCULAR HGB CONC 29.3 g/dl (32.0-36.5); MONO # 0.2 K/mm3 (0.0-0.8); MONO % 4.4 % (0.0-5.0); NEUTROPHILS # 2.7 K/mm3 (1.8-7.7); NEUTROPHILS % 54.9 % (36.0-66.0); PLATELET COUNT, AUTOMATED 245 k/mm3 (150-450); RED CELL DISTRIBUTION WIDTH 17.9 % (11.5-14.5); WHITE BLOOD COUNT 4.8 K/mm3 (4.0-10.0)
[2016-08-30 18:22] LABS: ADD MORPHOLOGY? YES
[2016-08-30 18:24] LABS: ALBUMIN 3.9 GM/DL (3.2-5.2); ALBUMIN/GLOBULIN RATIO 1.15 (1.00-1.93); ALKALINE PHOSPHATASE 72 U/L (45-117); ALT/SGPT 15 U/L (12-78); ANION GAP 5 MEQ/L (8-16); AST/SGOT 14 U/L (15-37); BILIRUBIN,TOTAL 0.4 MG/DL (0.2-1.0); BLOOD UREA NITROGEN 5 MG/DL (7-18); CALCIUM LEVEL 8.8 MG/DL (8.5-10.1); CARBON DIOXIDE LEVEL 29 MEQ/L (21-32); CHLORIDE LEVEL 107 MEQ/L (98-107); CREATININE FOR GFR 0.56 MG/DL (0.55-1.02); GLOMERULAR FILTRATION RATE > 60.0 (>60); GLUCOSE, FASTING 79 MG/DL (70-105); POTASSIUM SERUM 4.3 MEQ/L (3.5-5.1); SODIUM LEVEL 141 MEQ/L (136-145); TOTAL PROTEIN 7.3 GM/DL (6.4-8.2)
[2016-08-30 18:53] LABS: CONTROL LINE UCG INT CTR LINE PRESENT
--- NOTE | 2016-08-30 21:13 | ECGEPIP ---
Stationary ECG Study [facility] Test Date: 2016-08-30 Pat Name: JO ANN SCHERER Department: Room: - Gender: F Hospitality Team Member: SINTIA : 1980 Requested By: Chase Luna Order Number: [id number] Reading MD: Brian Snyder Measurements Intervals [place] Rate: 57 P: 14 MA: 149 QRS: 48 QRSD: 99 T: 53 QT: 424 QTc: 414 Interpretive Statements SINUS BRADYCARDIA Comparison tracing not on file Electronically Signed On 08-30-2016 21:13:41 EDT by Brian Snyder
[2016-08-30 21:24] LABS: ANISOCYTOSIS 1+; HYPOCHROMASIA 2+; MICROCYTOSIS 2+
[2016-08-30 21:25] LABS: SCHISTOCYTES 1+; TEAR DROP CELLS 1+
== END ==
LOC: M LAB 16:13
PROVIDERS: ATTEND Family Medicine
DX: F11.20 Opioid dependence, uncomplicated (principal); R00.1 Bradycardia, unspecified

== ENCOUNTER → 2016-12-21 | Outpatient (REF) | payer OTHER ==
[~2016-12-21] MED LIST changes: -COLA100C3 PO; +COLA100C5 PO; +CYMB60CA3 PO; -METH-107 PO; +METH1TAB40 PO; +PROT1TAB2 PO; +SIME180C PO; +SUBO12MI SL; +TYLE-45 PO
[2016-12-26 10:22] LABS: BENZODIAZEPINES, URINE SCREEN Negative ng/mL (Cutoff=200); METHADONE, URINE SCREEN Negative ng/mL (Cutoff=300); pH, URINE 6.4 (4.5-8.9)
[2016-12-28 14:59] LABS: MISCELLANEOUS TEST LAB See Separate Report
== END ==
LOC: M LAB REF 11:14
PROVIDERS: ATTEND Family Medicine Addiction Medicine
DX: F11.10 Opioid abuse, uncomplicated (principal)

== ENCOUNTER → 2016-12-28 | Outpatient (REF) | payer OTHER ==
[2016-12-31 00:06] LABS: BENZODIAZEPINES, URINE SCREEN Negative ng/mL (Cutoff=200); METHADONE, URINE SCREEN Negative ng/mL (Cutoff=300); pH, URINE 7.8 (4.5-8.9)
== END ==
LOC: M LAB REF 12:05
PROVIDERS: ATTEND Family Medicine Addiction Medicine
DX: F11.10 Opioid abuse, uncomplicated (principal)

== ENCOUNTER → 2017-01-04 | Outpatient (REF) | payer OTHER ==
[2017-01-12 00:06] LABS: BENZODIAZEPINES, URINE SCREEN Negative ng/mL (Cutoff=200); METHADONE, URINE SCREEN Negative ng/mL (Cutoff=300); NALOXONE RESULT Positive (.); URINE NORBUPRENORPHINE Positive (.); URINE NORBUPRENORPHINE CONFIRM 1090 ng/mL (Cutoff=10); pH, URINE 5.8 (4.5-8.9)
== END ==
LOC: M LAB REF 16:16
PROVIDERS: ATTEND Family Medicine Addiction Medicine
DX: F11.10 Opioid abuse, uncomplicated (principal)

== ENCOUNTER → 2017-01-09 | Outpatient (CLI) | payer OTHER ==
[2017-01-10 10:52] LABS: HEPATITIS B SURFACE ANTIBODY NEGATIVE (POSITIVE)
== END ==
LOC: M WUC 17:47
PROVIDERS: ATTEND Family Medicine Addiction Medicine
DX: Z02.89 Encounter for other administrative examinations (principal)

== ENCOUNTER → 2017-01-18 | Outpatient (REF) | payer OTHER ==
[2017-01-29 00:06] LABS: BENZODIAZEPINES, URINE SCREEN Negative ng/mL (Cutoff=200); METHADONE, URINE SCREEN Negative ng/mL (Cutoff=300); NALOXONE RESULT Positive (.); URINE NORBUPRENORPHINE Positive (.); URINE NORBUPRENORPHINE CONFIRM 702 ng/mL (Cutoff=10)
== END ==
LOC: M LAB REF 16:45
PROVIDERS: ATTEND Family Medicine Addiction Medicine
DX: F11.10 Opioid abuse, uncomplicated (principal); R30.0 Dysuria

== ENCOUNTER 2017-01-20 14:41 | Emergency (ER) | payer OTHER ==
[~2017-01-20] VITALS: Ht 175.3 cm; Wt 63.6 kg
[~2017-01-20 14:41] MED LIST changes: -CYMB60CA3 PO; -PROT1TAB2 PO; -SIME180C PO; -SUBO12MI SL; -TYLE-45 PO
[2017-01-20] MEDS ORDERED: TYLE-45 PO (14:48)
[2017-01-20] MEDS ORDERED: SUBO12MI SL (14:48)
[2017-01-20] MEDS ORDERED: CYMB60CA3 PO (14:48)
[2017-01-20] MEDS ORDERED: NS 500 ML IV ONE (15:15)
[2017-01-20] MEDS ORDERED: KETOROLAC 30 MG/ML VIAL (J1885) IV ONE (15:15)
[2017-01-20] MEDS ORDERED: ONDANSETRON 4MG/2ML VIAL (J2405) IV ONE (15:15)
[2017-01-20 15:30] LABS: BASO % 0.4 % (0.0-1.0); EOS % 0.8 % (0.0-3.0); IMMATURE GRANULOCYTE % 0.2 % (0-0); LYMPH # 2.1 10^3/uL (1.5-4.5); LYMPH % 41.2 % (24.0-44.0); MEAN CORPUSCULAR HEMOGLOBIN 22.1 pg (27.0-33.0); MEAN CORPUSCULAR VOLUME 73.7 fl (80.0-96.0); MONO # 0.3 10^3/uL (0.0-0.8); MONO % 5.6 % (0.0-5.0); NEUTROPHILS # 2.6 10^3/uL (1.8-7.7); NEUTROPHILS % 51.8 % (36.0-66.0); PLATELET COUNT, AUTOMATED 249 10^3/uL (150-450)
[2017-01-20 15:55] LABS: ALBUMIN 4.1 GM/DL (3.2-5.2); ALBUMIN/GLOBULIN RATIO 1.14 (1.00-1.93); ALKALINE PHOSPHATASE 83 U/L (45-117); ALT/SGPT 18 U/L (12-78); AMYLASE 49 U/L (25-115); ANION GAP 6 MEQ/L (8-16); AST/SGOT 13 U/L (7-37); BILIRUBIN,TOTAL 0.4 MG/DL (0.2-1.0); BLOOD UREA NITROGEN 9 MG/DL (7-18); CALCIUM LEVEL 8.7 MG/DL (8.5-10.1); CARBON DIOXIDE LEVEL 29 MEQ/L (21-32); CHLORIDE LEVEL 106 MEQ/L (98-107); CREATININE FOR GFR 0.72 MG/DL (0.55-1.02); GLOMERULAR FILTRATION RATE > 60.0 (>60); GLUCOSE, FASTING 68 MG/DL (70-105); POTASSIUM SERUM 3.6 MEQ/L (3.5-5.1); SODIUM LEVEL 141 MEQ/L (136-145); TOTAL PROTEIN 7.7 GM/DL (6.4-8.2)
[2017-01-20] MEDS ORDERED: GASTROGRAFIN SOLUTION 30ML (Q9963) PO ONE (16:00)
[2017-01-20] MEDS ORDERED: GASTROGRAFIN SOLUTION 30ML PO ONE (16:30)
[2017-01-20] MEDS ORDERED: ISOVUE-370 76% 100ML VIAL (Q9967) As Ordered ONE (18:08)
--- NOTE | 2017-01-20 19:20 | REPUSA ---
CLINICAL HISTORY: Left lateral abdominal pain. History of SBO. TECHNIQUE: Multiple axial, coronal, sagittal CT images were obtained through the abdomen and pelvis after administration of intravenous contrast material. Oral contrast material is not administered. COMMENTS: The liver is of uniform attenuation without mass or defect. There is no intra or extrahepatic biliar y ductal dilatation. The spleen is normal. Status post cholecystectomy. The pancreas is of normal contour and attenuation characteristics. There is a 3 x 2 cm water-density mass noted in the left ad renal gland compatible with adenoma. There are postsurgical changes noted in the left upper quadrant in association with the stomach. Both kidneys demonstrate prompt and equal nephrograms. The kidneys are normal in size, shape and con figuration. There is no evidence of renal or ureteral mass. No renal or ureteral calculi are identi fied. There is no hydroureter or hydronephrosis. IVC filter is in place. No evidence for appendicitis. There is no bowel wall thickening. No evidence for small or large bow el obstruction. There is no evidence of abdominal ascites or lymphadenopathy. Small hiatal hernia i s seen. There is no evidence of intrinsic or extrinsic bladder mass. There is no pelvic ascites or lymphaden opathy. Uterus and ovaries are unremarkable. Images of the lung bases show no evidence of pleural or parenchymal mass. There are no pleural effus ions. There are deformities noted involving bilateral pubic bones. IMPRESSION: No acute abdominal pathology. Left adrenal adenoma.
[2017-01-20] MEDS ORDERED: PROT1TAB2 PO (19:55)
[2017-01-20] MEDS ORDERED: SIME180C PO (19:56)
[2017-01-20 20:03] VITALS: BP 154/94
== END 2017-01-20 20:05 | disposition home or self-care (01) ==
LOC: M ED 14:41
DX: K29.00 Acute gastritis without bleeding (principal); D35.00 Benign neoplasm of unspecified adrenal gland; E11.9 Type 2 diabetes mellitus without complications; F41.9 Anxiety disorder, unspecified; F17.210 Nicotine dependence, cigarettes, uncomplicated; Z79.3 Long term (current) use of hormonal contraceptives; Z79.899 Other long term (current) drug therapy; Z79.82 Long term (current) use of aspirin; Z98.0 Intestinal bypass and anastomosis status
CPT/HCPCS: 74177; 80053; 81001; 81025; 82150; 83690; 85025; 86140; 87086; 96374; 96375; 99284; J1885; J2405; Q9963; Q9967

== ENCOUNTER → 2017-02-08 | Outpatient (REF) | payer MEDICAID, OTHER, SELFPAY ==
[~2017-02-08] MED LIST changes: +CYMB60CA3 PO; +PROT1TAB2 PO; +SIME180C PO; +SUBO12MI SL; +TYLE-45 PO
== END ==
LOC: M LAB REF 16:36
PROVIDERS: ATTEND Family Medicine Addiction Medicine
DX: F11.10 Opioid abuse, uncomplicated (principal)

== ENCOUNTER → 2017-02-22 | Outpatient (REF) | payer MEDICAID | LOC: M LAB REF 17:36 | PROVIDERS: ATTEND Family Medicine Addiction Medicine | DX: F11.10 Opioid abuse, uncomplicated (principal) ==

== ENCOUNTER → 2017-03-08 | Outpatient (REF) | payer MEDICAID | LOC: M LAB REF 16:46 | PROVIDERS: ATTEND Family Medicine Addiction Medicine | DX: F11.10 Opioid abuse, uncomplicated (principal) ==

== ENCOUNTER → 2017-03-28 | Outpatient (REF) | payer OTHER | LOC: M LAB REF 13:09 | DX: F11.10 Opioid abuse, uncomplicated (principal) ==

== ENCOUNTER → 2017-04-25 | Outpatient (REF) | payer OTHER | LOC: M LAB REF 16:38 | DX: F11.10 Opioid abuse, uncomplicated (principal) ==

== ENCOUNTER → 2017-05-23 | Outpatient (REF) | payer OTHER, MEDICAID | LOC: M LAB REF 16:44 | DX: F11.10 Opioid abuse, uncomplicated (principal) ==

== ENCOUNTER → 2017-06-13 | Outpatient (REF) | payer OTHER, MEDICAID | LOC: M LAB REF 12:08 | DX: F11.10 Opioid abuse, uncomplicated (principal) ==

== ENCOUNTER → 2017-07-11 | Outpatient (REF) | payer OTHER | LOC: M LAB REF 18:57 | DX: F11.10 Opioid abuse, uncomplicated (principal) ==

== ENCOUNTER → 2017-08-08 | Outpatient (REF) | payer OTHER | LOC: M LAB REF 16:47 | DX: F11.10 Opioid abuse, uncomplicated (principal) ==

== ENCOUNTER → 2017-12-05 | Outpatient (REF) | payer OTHER ==
[2017-12-05 19:26] LABS: BASO % 0.7 % (0.0-1.0); EOS # 0.1 10^3/uL (0.0-0.50); EOS % 1.4 % (0.0-3.0); HEMATOCRIT 32.4 % (36.0-47.0); HEMOGLOBIN 9.5 g/dl (12.0-15.5); LYMPH # 1.9 10^3/uL (1.5-4.5); MEAN CORPUSCULAR HEMOGLOBIN 21.2 pg (27.0-33.0); MEAN CORPUSCULAR HGB CONC 29.3 g/dl (32.0-36.5); MEAN CORPUSCULAR VOLUME 72.2 fl (80.0-96.0); MONO # 0.2 10^3/uL (0.0-0.8); MONO % 3.5 % (0.0-5.0); NEUTROPHILS # 2.2 10^3/uL (1.8-7.7); NEUTROPHILS % 51.4 % (36.0-66.0); PLATELET COUNT, AUTOMATED 250 10^3/uL (150-450); RED BLOOD COUNT 4.49 10^6/uL (4.00-5.40); RED CELL DISTRIBUTION WIDTH 18.4 % (11.5-14.5); WHITE BLOOD COUNT 4.3 10^3/uL (4.0-10.0)
[2017-12-05 19:42] LABS: ESTIMATED AVERAGE GLUCOSE 88 MG/DL (60-110); HEMOGLOBIN A1c 4.7 %
[2017-12-05 19:50] LABS: ALBUMIN 3.8 GM/DL (3.2-5.2); ALBUMIN/GLOBULIN RATIO 1.06 (1.00-1.93); ALKALINE PHOSPHATASE 91 U/L (45-117); ALT/SGPT 21 U/L (12-78); ANION GAP 8 MEQ/L (8-16); AST/SGOT 21 U/L (7-37); BILIRUBIN,TOTAL 0.4 MG/DL (0.2-1.0); BLOOD UREA NITROGEN 6 MG/DL (7-18); CALCIUM LEVEL 8.6 MG/DL (8.5-10.1); CARBON DIOXIDE LEVEL 26 MEQ/L (21-32); CHLORIDE LEVEL 108 MEQ/L (98-107); CREATININE FOR GFR 0.59 MG/DL (0.55-1.30); FOLATE 14.7 NG/ML (>5.4); GLOMERULAR FILTRATION RATE > 60.0 (>60); GLUCOSE, FASTING 82 MG/DL (70-100); IRON (FE) 22 UG/DL (50-170); POTASSIUM SERUM 3.3 MEQ/L (3.5-5.1); SODIUM LEVEL 142 MEQ/L (136-145); TOTAL 25(OH) VITAMIN D 43.9 NG/ML (30.0-100.0); TOTAL PROTEIN 7.4 GM/DL (6.4-8.2)
== END ==
LOC: M LAB REF 16:58
DX: Z13.9 Encounter for screening, unspecified (principal)

== ENCOUNTER → 2018-04-01 | Outpatient (REF) | payer OTHER ==
[~2018-04-01] MED LIST changes: +ZOFR4TAB14 PO; -ZOFR4TAB3 PO
[2018-04-01 18:55] LABS: BASO % 0.7 % (0.0-1.0); EOS # 0.1 10^3/uL (0.0-0.50); EOS % 1.6 % (0.0-3.0); HEMATOCRIT 31.2 % (36.0-47.0); HEMOGLOBIN 9.1 g/dl (12.0-15.5); LYMPH # 1.3 10^3/uL (1.5-4.5); MEAN CORPUSCULAR HEMOGLOBIN 21.4 pg (27.0-33.0); MEAN CORPUSCULAR HGB CONC 29.2 g/dl (32.0-36.5); MEAN CORPUSCULAR VOLUME 73.2 fl (80.0-96.0); MONO # 0.2 10^3/uL (0.0-0.8); MONO % 4.4 % (0.0-5.0); NEUTROPHILS # 2.8 10^3/uL (1.8-7.7); NEUTROPHILS % 64.1 % (36.0-66.0); PLATELET COUNT, AUTOMATED 290 10^3/uL (150-450); RED BLOOD COUNT 4.26 10^6/uL (4.00-5.40); WHITE BLOOD COUNT 4.4 10^3/uL (4.0-10.0)
[2018-04-01 19:00] LABS: ALBUMIN 3.7 GM/DL (3.2-5.2); ALT/SGPT 17 U/L (12-78); BILIRUBIN,TOTAL 0.4 MG/DL (0.2-1.0); BLOOD UREA NITROGEN 10 MG/DL (7-18); CALCIUM LEVEL 8.3 MG/DL (8.5-10.1); CARBON DIOXIDE LEVEL 29 MEQ/L (21-32); CHLORIDE LEVEL 106 MEQ/L (98-107); CREATININE FOR GFR 0.55 MG/DL (0.55-1.30); GLOMERULAR FILTRATION RATE > 60.0 (>60); GLUCOSE, FASTING 76 MG/DL (70-100); MAGNESIUM LEVEL 2.2 MG/DL (1.8-2.4); PHOSPHORUS LEVEL 3.6 MG/DL (2.5-4.9); POTASSIUM SERUM 3.5 MEQ/L (3.5-5.1); SODIUM LEVEL 140 MEQ/L (136-145)
== END ==
LOC: M LAB REF 16:30
PROVIDERS: ATTEND Psychiatry & Neurology Child & Adolescent Psychiatry
DX: F34.1 Dysthymic disorder (principal); D50.9 Iron deficiency anemia, unspecified

== ENCOUNTER → 2018-04-10 | Outpatient (REF) | payer OTHER ==
[2018-04-10 14:58] LABS: APPEARANCE, URINE CLEAR (CLEAR); BACTERIA, URINE AUTO NEGATIVE (NEGATIVE); BILIRUBIN, URINE AUTO NEGATIVE (NEGATIVE); BLOOD, URINE BLOOD NEGATIVE (NEGATIVE); COLOR, URINE YELLOW (YELLOW); GLUCOSE, URINE (UA) AUTO NEGATIVE (NEGATIVE); KETONE, URINE AUTO NEGATIVE (NEGATIVE); LEUKOCYTE ESTERASE, URINE AUTO NEGATIVE (NEGATIVE); NITRITE, URINE AUTO NEGATIVE (NEGATIVE); PROTEIN, URINE AUTO NEGATIVE (NEGATIVE); RBC, URINE AUTO 1 /HPF (0-3); SPECIFIC GRAVITY URINE AUTO 1.006 (1.002-1.035); SQUAMOUS EPITHELIAL CELL UR AU 0 /HPF (0-6); WBC, URINE AUTO 1 /HPF (0-3)
[2018-04-10 16:28] LABS: CHLAMYDIA DNA AMPLIFICATION POSITIVE (NEGATIVE); GC DNA AMPLIFICATION NEGATIVE (NEGATIVE)
== END ==
LOC: M LAB REF 14:28
PROVIDERS: ATTEND Nurse Practitioner Adult Health
DX: Z13.9 Encounter for screening, unspecified (principal)

== ENCOUNTER → 2018-05-08 | Outpatient (REF) | payer OTHER ==
[~2018-05-08] MED LIST changes: +ALL10TAB28 PO
[2018-05-11 00:07] LABS: HSV IgM TYPES 1&2 2.47 Ratio (0.00-0.90)
== END ==
LOC: M LAB REF 16:33
PROVIDERS: ATTEND Nurse Practitioner Adult Health
DX: Z13.9 Encounter for screening, unspecified (principal)

== ENCOUNTER 2019-02-20 21:03 | Emergency (ER) | payer OTHER ==
[~2019-02-20] VITALS: Ht 175.3 cm; Wt 65.5 kg
[~2019-02-20 21:03] MED LIST changes: -ALL10TAB28 PO; +ALL10TAB29 PO; +HYDR-3715 PO; -NORCOTAB PO
[2019-02-20] MEDS ORDERED: IBUP80TA PO (21:40)
[2019-02-20] MEDS ORDERED: OMEP40CA97 PO (21:40)
[2019-02-20] MEDS ORDERED: NS 1,000 ML IV ONE (21:45)
[2019-02-20] MEDS ORDERED: DICYCLOMINE 10 MG CAP PO ONE (21:45)
[2019-02-20] MEDS ORDERED: METOCLOPRAMIDE INJ 10MG/2ML VIAL (J2765) IV ONE (21:45)
[2019-02-20] MEDS ORDERED: MORPHINE 4 MG/ML 1ML VIAL/SYRINGE (J2270) IV ONE (21:45)
[2019-02-20 21:55] LABS: BASO % 0.5 % (0.0-1.0); EOS # 0.1 10^3/uL (0.0-0.5); EOS % 1.7 % (0.0-3.0); HEMATOCRIT 37.7 % (36.0-47.0); HEMOGLOBIN 11.7 g/dl (12.0-15.5); LYMPH # 1.7 10^3/uL (1.5-5.0); LYMPH % 29.2 % (24.0-44.0); MEAN CORPUSCULAR HEMOGLOBIN 26.9 pg (27.0-33.0); MEAN CORPUSCULAR VOLUME 86.7 fl (80.0-96.0); MONO # 0.4 10^3/uL (0.0-0.8); MONO % 6.7 % (0.0-5.0); NEUTROPHILS # 3.6 10^3/uL (1.5-8.5); NEUTROPHILS % 61.6 % (36.0-66.0); PLATELET COUNT, AUTOMATED 281 10^3/uL (150-450); RED BLOOD COUNT 4.35 10^6/uL (4.00-5.40); WHITE BLOOD COUNT 5.8 10^3/uL (4.0-10.0)
[2019-02-20 22:07] LABS: BILIRUBIN, URINE MANUAL NEGATIVE (NEGATIVE); GLUCOSE, URINE (UA) MANUAL NEGATIVE (NEGATIVE); KETONE, URINE MANUAL NEGATIVE (NEGATIVE); UROBILINOGEN, URINE MANUAL NORMAL (NORMAL)
[2019-02-20] MEDS: GASTROGRAFIN SOLUTION 30ML PO SCH ×2 (22:09→22:43)
[2019-02-20 22:34] LABS: ALBUMIN 3.2 GM/DL (3.2-5.2); ALT/SGPT 16 U/L (12-78); BILIRUBIN,DIRECT < 0.1 MG/DL (0.0-0.2); BILIRUBIN,TOTAL 0.3 MG/DL (0.2-1.0); BLOOD UREA NITROGEN 7 MG/DL (7-18); CARBON DIOXIDE LEVEL 30 MEQ/L (21-32); CHLORIDE LEVEL 109 MEQ/L (98-107); CREATININE FOR GFR 0.63 MG/DL (0.55-1.30); GLOMERULAR FILTRATION RATE > 60.0 (>60); GLUCOSE, FASTING 58 MG/DL (70-100); LIPASE 93 U/L (73-393); POTASSIUM SERUM 3.6 MEQ/L (3.5-5.1); SODIUM LEVEL 143 MEQ/L (136-145); TOTAL PROTEIN 6.5 GM/DL (6.4-8.2)
[2019-02-20] MEDS ORDERED: METAL LOCK LOOP XX ONE (22:35)
[2019-02-20 23:00] LABS: BACTERIA, URINE SMALL AMOUNT; HYALINE CAST, URINE NONE SEEN /lpf (0-1); RBC, URINE NONE SEEN /hpf (0-3); SQUAMOUS EPITHELIAL CELL URINE SMALL AMOUNT /hpf (SMALL AMT)
[2019-02-20] MEDS ORDERED: ISOVUE-370 76% 100ML VIAL (Q9967) As Ordered ONE (23:25)
--- NOTE | 2019-02-21 00:31 | REPVR ---
PROCEDURE INFORMATION: Exam: CT Abdomen And Pelvis With Contrast Exam date and time: 02/20/2019 11:34 PM Age: 38 years old Clinical history: Abdominal pain; Generalized; Additional info: Sudden onset epigastric severe tender, HX ulcer perf/sbo TECHNIQUE: Imaging protocol: Computed tomography of the abdomen and pelvis with intravenous contrast. Radiation optimization: All CT scans at this facility use at least one of these dose optimization techniques: automated exposure control; mA and/or kV adjustment per patient size (includes targeted exams where dose is matched to clinical indication); or iterative reconstruction. Contrast material: ISOVUE 370; Contrast volume: 100 ml; Contrast route: IV; COMPARISON: CT ABD/PEL W/IV ORAL CONTRAS 01/20/2017 6:12 PM FINDINGS: Lungs: Minimal right middle lobe atelectasis or scar which is new since the prior study. Liver: The liver attenuation is 82 Hounsfield units and the spleen is 130 Hounsfield units. Gallbladder and bile ducts: Status post cholecystectomy. Mild biliary dilation which is attributed to prior cholecystectomy and is likely physiologic. The CBD measures 8 mm. Pancreas: Normal. No ductal dilation. Spleen: Normal. No splenomegaly. Adrenals: Left adrenal nodule measuring 3.8 x 2.4 x 3.3 cm with a Hounsfield measurement of -8 consistent with fatty component. Kidneys and ureters: Normal. No hydronephrosis. Stomach and bowel: Status post gastric bypass with mild fluid in the bypassed stomach. Mild gastric antral wall thickening which may reflect underdistention. Appendix: There are no changes of appendicitis. The appendix is not seen. Intraperitoneal space: Minimal fluid in the cul-de-sac which is upper normal for physiologic origin. Vasculature: There is an IVC filter in position. Lymph nodes: Unremarkable. No enlarged lymph nodes. Bladder: Unremarkable as visualized. Reproductive: Unremarkable as visualized. Bones/joints: Unremarkable. No acute fracture. Soft tissues: Unremarkable. Other findings: Upper normal size of jejunal segments. IMPRESSION: 1. Minimal right middle lobe atelectasis or scar which is new since 01/20/2017. 2. Status post cholecystectomy and gastric bypass. There is mild fluid in the bypassed stomach. 3. IVC filter in position. 4. Fatty infiltration of the liver. 5. Fatty left adrenal nodule which is unchanged from the prior study. Electronically signed by: Dashawn Galvin On 02/21/2019 00:31:02 AM
[2019-02-21] MEDS ORDERED: SIMETHICONE 80 MG CHEW TAB PO STA (00:42)
[2019-02-21] MEDS ORDERED: METHOCARBAMOL 1,000 MG/10 ML VIAL (J2800) IV ONE (00:45)
[2019-02-21] MEDS ORDERED: SIME180C PO (01:21)
[2019-02-21] MEDS ORDERED: ROBA750T4 PO (01:21)
[2019-02-21] MEDS ORDERED: METAL LOCK LOOP XX ONE (01:23)
[2019-02-21 01:32] VITALS: BP 124/81
== END 2019-02-21 01:33 | disposition home or self-care (01) ==
LOC: M ED 21:03
DX: R10.9 Unspecified abdominal pain (principal); M54.9 Dorsalgia, unspecified; I10 Essential (primary) hypertension; Z98.84 Bariatric surgery status; Z79.899 Other long term (current) drug therapy; Z88.8 Allergy status to other drugs, medicaments and biological substances; F17.210 Nicotine dependence, cigarettes, uncomplicated
CPT/HCPCS: 74177; 80048; 80076; 81000; 83690; 84702; 85025; 96361; 96374; 96375; 99284; J2270; J2765; J2800; Q9963; Q9967